=== PATIENT | female | born 1950 | race Caucasian/White ===

== ENCOUNTER 2017-01-04 19:10 | Inpatient (IN) ==
--- NOTE | 2017-01-04 20:39 | Emergency Department Note ---
Arrival - Arrival Chief Complaint: Fall Stated Complaint: fall ED Nursing Triage Note: TO ER ROOM 14 PER [facility] WITH C/O SP FALL. EMS REPORTS PATIENT BECAME DIZZY AND GOT UP TO CHECK HER BLOOD SUGAR (33 PER PATIENTS GLUCOMETER). PATIENT FELL DURING THAT TIME AND IS UNSURE IF SHE HIT HER HEAD OR HAD ANY LOC. PATIENT REPORTS SHE IS UNABLE TO RECALL THE EVENT OR ANYTHING AFTER CHECKING HER BLOOD SUGAR. EMS REPORTS ON ARRIVAL PATIENTS CBG WAS 505. PATIENT IS AAOX4 ON ARRIVAL AND IN FULL SPINAL PACKAGING AND C-COLLAR IN PLACE DUE TO FALL. PATIENT RECIEVED 1 LITER OF NORMAL SALINE IN ROUTE.CBG ON ARRIVAL TO ED IS 417. COMPLAINTS OF LOWER BACK PAIN HOWEVER PATIENT ALSO REPORTS BACK SURGERY "NOT LONG AGO". Mode of Arrival: Stretcher Time Seen by Provider: 01/04/17 19:43 - History of Present Illness HPI Narrative: This is a 66-year-old white female with a history of type 2 diabetes with an insulin pump, hypertension, hyperlipidemia, and depression who presented to the emergency department with a blood sugar of 33 as documented by her home glucometer similar to an admission on October 22, 2015 where she also had a seizure and was started on Trileptal. The patient has stopped the Trileptal over the past several months. The patient says that the problem began when she checked her blood sugar and found it to be 37. Thereafter she does not remember what happened but woke up on the floor complaining of right rib pain and head pain. When EMS arrived they found that her blood sugar was over 500. The placed her in a c-collar and on a backboard and brought her to the emergency department. Allergies/Adverse Reactions: Allergies Allergy/AdvReac Type Severity Reaction Status Date / Time cefuroxime [From Ceftin] Allergy Intermediate RASH Verified 06/25/16 06:33 Penicillins Allergy Intermediate RASH Verified 06/25/16 06:33 sulfamethoxazole Allergy Intermediate RASH Verified 06/25/16 06:33 [From Septra] trimethoprim [From Septra] Allergy Intermediate RASH Verified 06/25/16 06:33 Home Medications: Home Medications Medication Instructions Recorded Confirmed Type Amlodipine Besylate 10 mg PO DAILY 10/18/15 06/25/16 History Atorvastatin [Lipitor] 40 mg PO DAILY 10/18/15 06/25/16 History Cyanocobalamin (Vitamin B-12) 1,000 mcg PO DAILY 10/18/15 06/25/16 History [Vitamin B-12] Gabapentin 300 mg PO DAILY 10/18/15 06/25/16 History Sertraline HCl 100 mg PO DAILY 10/18/15 06/25/16 History Cetirizine Tab [ZyrTEC Tab] 10 mg PO DIRECTED PRN 03/04/16 06/25/16 History Fluticasone 50 Mcg Nasal [place] 1 sprays BOTH NARES DAILY 03/04/16 06/25/16 History [Flonase Nasal [place]] Insulin Aspart [NovoLOG] 0.45 units SUBCUT DIRECTED 03/09/16 06/25/16 History Tamsulosin [Flomax] 0.4 mg PO BEDTIME 03/09/16 06/25/16 History Nitrofurantoin Macro/[place] 100 mg PO BID 06/25/16 06/25/16 History [Macrobid] Review of System - Review of System Constitutional: Absent: fever, night sweats, weakness Eyes: Absent: redness, vision change Head/Ears/Nose/Throat: Absent: epistaxis, nasal drainage Respiratory: Absent: respiratory distress, wheezing Cardiovascular: Absent: dyspnea on exertion, orthopnea, edema Gastrointestinal: Absent: diarrhea, constipation Genitourinary female: Absent: frequency, hematuria Musculoskeletal: Absent: joint swelling, lower back pain, leg pain, neck pain Skin: Absent: change in color, change in hair/nails, pruritus Psychiatric: Absent: anxiety, suicidal thoughts Endocrine: Absent: heat intolerance, polydipsia, polyuria Hematological/Lymphatic: Absent: easy bruising, lymphadenopathy Allergic/Immunologic: Absent: urticaria, itchy eyes Medical,Surgical,& Family Hx - Medical History Cardio: History of: Cardiac Dysrhythmia (HEART MURMUR), Hypertension, Cardiovascular Problems (HEART MUMASAF CANO) Psychological: History of: Depression Neurology: History of: Seizures (10 18 15 DUE TO LOW BS) HEENT: History of: Eye Problem (RETINOPATHY, READING GLASSES) Endocrine: History of: Diabetes Mellitus (IDDM) (has insulin pump, CONTINOUS RATE IN .45 UNITS AND BOLUS AT MEALS.) Rheumatology: History of;: Rheumatoid Arthritis Respiratory: History of: Respiratory Problems (FLU VAC- YES; PNEU VAC- YES) Genitourinary: History of: Kidney Stones Musculoskeletal: History of: Musculoskeletal Problems (OSTEOARTHRITIS) Hematology: History of: Anemia - Surgical History Thoracic Surgeries: Surgical HX of;: Lithotripsy (SEVERAL) HEENT Surgeries: Surgical HX of: Eye Surgery (CATARACTS) Abdominal Surgeries: Surgical HX of: Colonoscopy Reproductive Surgeries: Surgical HX of;: Section, Genitourinary Surgery , Gynecologic Surgery, Hysterectomy Orthopedic Surgeries: Surgical HX of;: Orthopedic Surgery (JUAN J L LEG AND 4 SCREWS.) - Family History Family History: Reports;: Family Cancer - Social History Smoking Status: Never smoker Frequency of Alcohol Use: None Type of Drug Use: None Exam Vital Signs: Vital Signs Temperature 97.7 F 01/04/17 19:10 Pulse Rate 91 H 01/04/17 19:10 Respiratory Rate 18 01/04/17 19:10 Blood Pressure 173/74 01/04/17 19:10 O2 Sat by Pulse Oximetry 96 01/04/17 19:10 - General Exam limited due to: ALOC - Eye Eye exam: Present: PERRL, EOMI - ENT ENT exam: Present: normal exam - Neck Neck exam: Present: normal inspection - Chest Chest inspection: Present: normal inspection - Respiratory Respiratory exam: Present: normal lung sounds bilaterally - Cardiovascular Cardiovascular exam: Present: regular rate - Abdominal Exam Abdominal exam: Present: soft, normal bowel sounds - Extremities Exam Extremities exam: Present: normal inspection, full ROM - Back Exam Back exam: Present: normal inspection, tenderness - Neurological Exam Neurological exam: Present: alert, oriented X3, CN II-XII intact - Psychiatric Psychiatric exam: Present: normal affect, normal mood - Skin Skin exam: Present: warm, dry Course Course Narrative: Because the patient lives alone and because she has passed out for reasons which are not clear since her blood sugar was elevated and because the patient feels generally ill case was discussed with her attending her agreed to put her in the hospital for a diagnosis of syncope for further evaluation and treatment as necessary. Results - Labs CBC & BMP: 01/04/17 20:43 01/04/17 20:43 Disposition Clinical Impression: Syncope and collapse Disposition: Still a Patient Additional Instructions: Because the patient lives alone and because she has passed out for reasons which are not clear since her blood sugar was elevated and because the patient feels generally ill case was discussed with her attending her agreed to put her in the hospital for a diagnosis of syncope for further evaluation and treatment as necessary.
[2017-01-04 21:00] LABS: Basophils % 0.4 % (0.0-0.8); Eosinophils % 0.3 % (0.00-10.9); Hematocrit 38.4 VOL% (35.7-47.0); Hemoglobin 13.3 GM/DL (12.0-16.0); Immature Granulocytes % 0.4 %; Immature Granulocytes Absolute 0.04 #; Lymphocytes # 1.1 10*3/uL (1.4-4.0); Lymphocytes % 11.4 % (21.3-54.2); Mean Corpuscular HGB Conc 34.6 GM/DL (32-36); Mean Corpuscular Hemoglobin 31 PG (27-34); Mean Corpuscular Volume 89.9 FL (87-102); Monocytes # 0.3 10*3/uL (0.11-0.8); Monocytes % 2.7 % (1.7-12.7); Neutrophils # 7.9 10*3/uL (1.4-7.4); Neutrophils % 84.8 % (38.7-73.9); Platelet Count 213 T/CUMM (130-400); Red Blood Count 4.27 MC/CUMM (3.8-5.5); White Blood Count 9.4 T/CUMM (4-12)
[2017-01-04 21:12] LABS: Alanine Aminotransferase 33 U/L (13-56); Albumin 3.5 G/DL (3.4-5.0); Alkaline Phosphatase 114 U/L (45-117); Aspartate Amino Transferase 27 U/L (0-37); Bilirubin,Total < 0.39 MG/DL (0.2-1.0); Blood Urea Nitrogen 16 MG/DL (7-18); Calcium 8.4 MG/DL (8.5-10.1); Glucose 423 MG/DL (74-106); Osmolality,Calculated 299.3 MOS/KG (273-304); Potassium 4.4 MMOL/L (3.5-5.1); Sodium 141 MMOL/L (136-145); Total Protein 6.1 G/DL (6.4-8.3)
--- NOTE | 2017-01-04 21:45 | EKG Report ---
Stationary ECG Study [facility] ER Test Date: 01/04/2017 9:44:06 PM Pat Name: DONI SANTIAGO Department: Room: Gender: F Butcher Or Smallgoods Maker: : 1950 Requested by: Jean Paul Lange Order Number: [id number] Reading MD: YUAN MILLIGAN Intervals [place] Rate: 87 P: 68 UT: 165 QRS: 73 QRSD: 90 T: 66 QT: 374 QTc: 418 Interpretive Statements SINUS RHYTHM MINIMAL VOLTAGE CRITERIA FOR LVH, CONSIDER NORMAL VARIANT Electronically Signed On 01-05-17 16:17:07 CDT by YUAN MILLIGAN [email or web address]
[2017-01-04] MEDS ORDERED: INSULIN REGULAR 100 UNIT/ML IV STA (22:49)
[2017-01-04] MEDS ORDERED: INSULIN REGULAR 100 UNIT/ML ONE (22:59)
[2017-01-04] MEDS ORDERED: DEXTROSE 50% 25 GM/50 ML SYRINGE IV PRN (23:03)
[2017-01-04] MEDS ORDERED: ONDANSETRON 4 MG/2 ML VIAL IV PRN (23:03)
[2017-01-04] MEDS ORDERED: GLUCAGON 1 MG VIAL IM PRN (23:03)
[2017-01-05] MEDS: ACETAMINOPHEN 325 MG TABLET PO PRN ×2 (02:39→09:36)
[2017-01-05] MEDS: INSULIN REGULAR 100 UNIT/ML SUBCUT SCH ×2 (03:03→07:09)
--- NOTE | 2017-01-05 06:13 | CT Report ---
Exam: CT scan of brain without contrast Date: 01/04/2017 Indication: Head injury status post fall Comparison: 10/18/2015 Patient's classification: Emergency department Technical: Images were obtained from the skull base to the vertex without the use of intravenous contrast. Dose reduction was performed with decreasing kv and mA and automated exposure Total DLP: 1081.1 mGy*cm Findings: The study was initially reviewed by [facility]. The brainstem, cerebellum and cerebral hemispheres are intact. The paranasal sinuses are unremarkable. Mastoids are intact. The ventricles are located in normal position without midline shift or mass effect. The globes and sella are intact. Vascular calcifications of the vertebral and internal carotid arteries minimally present. The calvarium is unremarkable. Impression: 1. No acute hemorrhage infarction or mass effect. PROCEDURE INTERPRETED AT [facility] DEPARTMENT OF RADIOLOGY Final Report Signed by: Dr. Wesley Kilgore
--- NOTE | 2017-01-05 06:16 | CT Report ---
Exam:CT cervical spine wo con Date:01/04/2017 8:46 PM Indication: Neck pain secondary to fall Comparison: None Total DLP: 807.3 mGy*cm Technical: Sagittal axial and coronal imaging was available for review with out the use of intravenous contrast. Dose reduction was performed with decreasing kv and mA and automated exposure Findings: The study was initially reviewed by [facility]. 7 cervical vertebral bodies are demonstrated. The vertebral body heights, lamina, pedicles, and posterior elements are intact. Examination reveals disc space narrowing at C4-5 with attempted bridging syndesmophyte at C4-5 and to a lesser degree C3-4 with attempted bridging syndesmophyte at C5-6. The arch at C1 and C2 and odontoid process are intact with some bony sclerosis present. The neural foramina canals are demonstrated with some uncovertebral osteophytic spurring at C3-4 C4-5 C5-6 and C6-7. No soft tissue abnormalities are demonstrated. Impression 1. No fracture or dislocation. 2. Mild degenerative changes and intervertebral disc space narrowing with degenerative spondylosis PROCEDURE INTERPRETED AT [facility] DEPARTMENT OF RADIOLOGY Final Report Signed by: Dr. Wesley Kilgore
--- NOTE | 2017-01-05 06:33 | CT Report ---
Exam:CT chest w con Date:01/04/2017 8:46 PM Indication: Right rib pain secondary to fall Technical: Images were obtained from the thoracic inlet through the lung bases with 80 cc of contrast. Axial sagittal and coronal imaging was available for review.Dose reduction was performed with decreasing kv and mA and automated exposure Total DLP: 807.3 mGy*cm Findings: The study was initially reviewed by [facility] The thyroid gland, trachea and esophagus are unremarkable. The anterior middle and posterior mediastinum are intact. The heart and pulmonary artery are unremarkable. ASVD is present in the aorta. The lungs are clear without infiltrates or effusions. Minimal dependent atelectatic change present. The bony structures are demonstrated with compression deformity T12 with previous vertebral plasty mild weightbearing deformity at T10 and T7 suspected. The cortical margins and ribs are otherwise intact. Remaining bony thorax appears intact. Impression: 1. Mild compression deformity at T7 and T10 with previous vertebral plasty at T12 2. Minimal dependent atelectatic change present. Exam: CT abdomen pelvis w con Date: 01/04/2017 8:46 PM Comparison: 11/09/2016 Indication: Pain secondary to fall rib and back pain Total DLP: As above mGy*cm Technical: No oral contrast was administered. Images were obtained from the lung bases to the iliac crest continuation through the pelvis with 100 cc of Omnipaque 350 with axial sagittal coronal imaging available for review. Dose reduction was performed with decreasing kv and mA and automated exposure Findings: Liver and Spleen: Unremarkable Gallbladder and Pancreas: Unremarkable Adrenals: Unremarkable Kidneys: Both kidneys are equally perfused and demonstrate no evidence for obstructive uropathy. Tiny nonobstructing stone in the left kidney measuring approximately 3 mm Stomach: Incompletely distended with air fluid and debris Retroperitoneum: No enlarged lymph nodes. Aorta and IVC: No obvious aneurysm atherosclerotic plaque is present. IVC is patent. Bowel and Mesentery: There is no evidence for bowel obstruction. Small appendicolith is present. No evidence of acute appendicitis noted. Minimal diverticulosis without diverticulitis present Pelvis: Bladder: Partially distended with contrast on delayed images Fluid: No free fluid identified. Lymph nodes: No enlarged lymph nodes. Pelvic organs: The uterus is surgically absent 1 prior hysterectomy. No obvious adnexal masses Osseous structures: Mild weightbearing deformity at L5. The bony pelvis is otherwise intact. Impression: 1. Minimal weightbearing deformity at L5. 2. Previous hysterectomy 3. Minimal diverticulosis 4. Small appendicolith present without appendicitis PROCEDURE INTERPRETED AT [facility] DEPARTMENT OF RADIOLOGY Final Report Signed by: Dr. Wesley Kilgore
[2017-01-05] MEDS: DOCUSATE SODIUM 100 MG CAPSULE PO SCH ×2 (09:33→22:51)
[2017-01-05] MEDS: PANTOPRAZOLE 40 MG TABLET PO SCH (09:35)
--- NOTE | 2017-01-05 09:55 | Internal Med History&Physical ---
Assessment and Plan (1) Syncopal episodes Status: Acute Assessment and plan: 66-year-old female admitted to acute care * Syncopal episodes. Probably secondary to hypoglycemia. Other differential diagnosis could be hypoglycemic seizure. She had stopped her Trileptal. Will consult Dr. Nettles to see the patient. She probably needs to start back on her Trileptal. * Hypoglycemic episodes. Patient is on insulin pump. Will consult diabetic education to evaluate. 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 She will benefit from a glucose monitoring device or the newer insulin pump * Hypertension. Blood pressure is stable * Depression. Continue current treatment * Hyperlipidemia. Continue atorvastatin * Chronic neck pain. Patient is getting injections and treatment per Dr. Saldaña. We will start her on PT and OT. * Chest wall pain. There is no point tenderness. She had CT chest done. Will do rib films to make sure * Discussed with patient and her sister. Current Visit: Yes (2) Multiple episodes of hypoglycemia Status: Acute Current Visit: Yes (3) Depression Status: Acute Current Visit: No (4) Insulin dependent diabetes mellitus Status: Acute Current Visit: No (5) Seizures Status: Acute Current Visit: No History of Present Illness Chief complaint: Syncopal episode History of present illness: Ms. Martinez is a 66 year old female with history of type 2 insulin-dependent diabetes, hypertension, hyperlipidemia, depression, previous seizures who had stopped taking her medication several months ago. He was brought to the emergency room after she became dizzy and checked her blood sugar. It was 33 according to the patient. She had a fall at that time and lost consciousness. She was unsure if she had hit her head. She does not recall what happened after that but she did drink some orange juice. Her blood sugar was over 500 minutes was checked by EMS. She was brought to the emergency room. Patient underwent evaluation including CT scan of head chest abdomen and cervical spine. She is complaining of pain in her right chest wall. She denies any nausea or vomiting. She denies any fever or chills. Patient lives alone at home. She denies any history of smoking or alcohol use. She was started on Trileptal last year but stopped it several months ago. Home Medications Medication Instructions Recorded Confirmed Type Amlodipine Besylate 10 mg PO DAILY 10/18/15 06/25/16 History Atorvastatin [Lipitor] 40 mg PO DAILY 10/18/15 06/25/16 History Cyanocobalamin (Vitamin B-12) 1,000 mcg PO DAILY 10/18/15 06/25/16 History [Vitamin B-12] Gabapentin 300 mg PO DAILY 10/18/15 06/25/16 History Sertraline HCl 100 mg PO DAILY 10/18/15 06/25/16 History Cetirizine Tab [ZyrTEC Tab] 10 mg PO DIRECTED PRN 03/04/16 06/25/16 History Fluticasone 50 Mcg Nasal [place] 1 sprays BOTH NARES DAILY 03/04/16 06/25/16 History [Flonase Nasal [place]] Insulin Aspart [NovoLOG] 0.45 units SUBCUT DIRECTED 03/09/16 06/25/16 History Tamsulosin [Flomax] 0.4 mg PO BEDTIME 03/09/16 06/25/16 History Nitrofurantoin Macro/[place] 100 mg PO BID 06/25/16 06/25/16 History [Macrobid] Allergies Allergy/AdvReac Type Severity Reaction Status Date / Time cefuroxime [From Ceftin] Allergy Intermediate RASH Verified 06/25/16 06:33 Penicillins Allergy Intermediate RASH Verified 06/25/16 06:33 sulfamethoxazole Allergy Intermediate RASH Verified 06/25/16 06:33 [From Septra] trimethoprim [From Septra] Allergy Intermediate RASH Verified 06/25/16 06:33 Medical,Surgical,& Family Hx - Medical History Cardio: History of: Cardiac Dysrhythmia (HEART MURMUR), Hypertension, Cardiovascular Problems (HEART MUMUR DR NAIDA CANO) Psychological: History of: Depression Neurology: History of: Seizures (10 18 15 DUE TO LOW BS) HEENT: History of: Eye Problem (RETINOPATHY, READING GLASSES) Endocrine: History of: Diabetes Mellitus (IDDM) (has insulin pump, CONTINOUS RATE IN .45 UNITS AND BOLUS AT MEALS.) Rheumatology: History of;: Rheumatoid Arthritis Respiratory: History of: Respiratory Problems (FLU VAC- YES; PNEU VAC- YES) Genitourinary: History of: Kidney Stones Musculoskeletal: History of: Musculoskeletal Problems (OSTEOARTHRITIS) Hematology: History of: Anemia - Surgical History Thoracic Surgeries: Surgical HX of;: Lithotripsy (SEVERAL) HEENT Surgeries: Surgical HX of: Eye Surgery (CATARACTS) Abdominal Surgeries: Surgical HX of: Colonoscopy Reproductive Surgeries: Surgical HX of;: Section, Genitourinary Surgery , Gynecologic Surgery, Hysterectomy Orthopedic Surgeries: Surgical HX of;: Orthopedic Surgery (JUAN J L LEG AND 4 SCREWS.) - Family History Family History: Reports;: Family Cancer - Social History Smoking Status: Never smoker Frequency of Alcohol Use: None Type of Drug Use: None Marital Status: Single Lives With:: Alone Functional capacity: independent ambulation 12 point system: reviewed and no additional remarkable complaints except as stated (As mentioned in HPI) Exam - Constitutional Vitals: Period Temp Pulse Resp BP Sys/Small Pulse Ox Last 24 Hr 97.4 F-98.8 F 71-91 18-20 134-173/60-74 96-97 Exam: Examination: GENERAL: NAD. HEENT: PERRLA. EOMI. Mucous membranes are moist. NECK: Neck is supple. No JVD. No carotid bruit. No thyromegaly. CVS: Regular rate and rhythm. S1 and S2 are normal. RESPIRATORY: Lungs are clear. No rales or rhonchi. ABDOMEN: Soft and nontender. Bowel sounds are present. No hepatosplenomegaly. EXT: No edema. Peripheral pulses are present. PROFESSOR OF ART HISTORY: Patient is awake, alert and oriented to time place and person. Cranial nerves II through XII are grossly intact. Motor strength is 4 over 5 both upper and lower extremities. Sensory is intact. Deep tendon reflexes are present. SKIN: Warm and dry. MSK: No obvious deformity. Results - Labs CBC & BMP: 01/04/17 20:43 01/04/17 20:43 Lab Results: I have reviewed the past 24 hour labs Quality Measures - VTE Contraindication to Pharmacological VTE Prophylaxis: High Risk of Bleeding
[2017-01-05] MEDS ORDERED: GLUCAGON 1 MG VIAL IM PRN (10:02)
--- NOTE | 2017-01-05 11:25 | XRay Report ---
2 view chest January 05, 2017 at 1038 hours Indication: Pain Comparison: October 18, 2015 Findings: Cardiomediastinal contours are normal. Lungs are clear bilaterally. No acute osseous abnormalities. Osseous structures are demineralized. Remote T12 compression deformity post augmentation, uncomplicated. Visualized upper abdomen demonstrates no acute pathology. Impression: No acute cardiopulmonary findings PROCEDURE INTERPRETED AT [facility] DEPARTMENT OF RADIOLOGY Final Report Signed by: Jero Hernandez
[2017-01-05] MEDS: INSULIN LISPRO 100 UNIT/ML SUBCUT SCH ×3 (12:18→22:48)
[2017-01-05] MEDS ORDERED: INSULIN LISPRO 100 UNIT/ML SUBCUT SCH (12:30)
--- NOTE | 2017-01-05 17:49 | Neurology Consult Note ---
History of Present Illness History of present illness: Ms. Martinez is a 66 year old right-handed white lady with history of type 2 insulin-dependent diabetes, hypertension, hyperlipidemia, depression, previous seizures who had stopped taking her medication several months ago for unclear reason. She was diagnosed as possible seizures in 2016. She was brought to the emergency room after she became dizzy and checked her blood sugar. It was 33 according to the patient. She had a fall at that time and lost consciousness. She was unsure if she had hit her head. She does not recall what happened after that but she did drink some orange juice. Her blood sugar was over 500 minutes was checked by EMS. She was brought to the emergency room. Patient underwent evaluation including CT scan of head chest abdomen and cervical spine. She is complaining of pain in her right chest wall. She denies any nausea or vomiting. She denies any fever or chills. Patient lives alone at home. She denies any history of smoking or alcohol use. CT of the head is unremarkable. CT of the cervical spine is negative. She is quite depressed and crying during the interview. Home Medications Medication Instructions Recorded Confirmed Type Amlodipine Besylate 10 mg PO DAILY 10/18/15 01/05/17 History Atorvastatin [Lipitor] 40 mg PO DAILY 10/18/15 01/05/17 History Cyanocobalamin (Vitamin B-12) 1,000 mcg PO DAILY 10/18/15 01/05/17 History [Vitamin B-12] Gabapentin 300 mg PO DAILY 10/18/15 01/05/17 History Sertraline HCl 100 mg PO DAILY 10/18/15 01/05/17 History Cetirizine Tab [ZyrTEC Tab] 10 mg PO DAILY PRN 03/04/16 01/05/17 History Fluticasone 50 Mcg Nasal [place] 1 sprays BOTH NARES DAILY 03/04/16 01/05/17 History [Flonase Nasal [place]] Insulin Aspart [NovoLOG] 0 units SUBCUT .PER PUMP 03/09/16 01/05/17 History Tamsulosin [Flomax] 0.4 mg PO BEDTIME 03/09/16 01/05/17 History Allergies Allergy/AdvReac Type Severity Reaction Status Date / Time cefuroxime [From Ceftin] Allergy Intermediate RASH Verified 06/25/16 06:33 Penicillins Allergy Intermediate RASH Verified 06/25/16 06:33 sulfamethoxazole Allergy Intermediate RASH Verified 06/25/16 06:33 [From ] trimethoprim [From ] Allergy Intermediate RASH Verified 06/25/16 06:33 12 point system: reviewed and no additional remarkable complaints except as stated Medical,Surgical,& Family Hx - Medical History Cardio: History of: Cardiac Dysrhythmia (HEART MURMUR), Hypertension, Cardiovascular Problems (HEART MUMUR DR NGUYENT DR CANO) Psychological: History of: Depression Neurology: History of: Seizures (10 18 15 DUE TO LOW BS) HEENT: History of: Eye Problem (RETINOPATHY, READING GLASSES) Endocrine: History of: Diabetes Mellitus (IDDM) (has insulin pump, CONTINOUS RATE IN .45 UNITS AND BOLUS AT MEALS.) Rheumatology: History of;: Rheumatoid Arthritis Respiratory: History of: Respiratory Problems (FLU VAC- YES; PNEU VAC- YES) Genitourinary: History of: Kidney Stones Musculoskeletal: History of: Musculoskeletal Problems (OSTEOARTHRITIS) Hematology: History of: Anemia - Surgical History Thoracic Surgeries: Surgical HX of;: Lithotripsy (SEVERAL) HEENT Surgeries: Surgical HX of: Eye Surgery (CATARACTS) Abdominal Surgeries: Surgical HX of: Colonoscopy Reproductive Surgeries: Surgical HX of;: Section, Genitourinary Surgery , Gynecologic Surgery, Hysterectomy Orthopedic Surgeries: Surgical HX of;: Orthopedic Surgery (JUAN J L LEG AND 4 SCREWS.) - Family History Family History: Reports;: Family Cancer - Social History Smoking Status: Never smoker Frequency of Alcohol Use: None Type of Drug Use: None Exam - Constitutional Vitals: Period Temp Pulse Resp BP Sys/Small Pulse Ox Last 24 Hr 97.4 F-98.8 F 69-91 18-20 132-173/60-74 96-97 Exam: GENERAL: Patient is in no acute distress. NECK: Neck is supple. There is no JVD. No carotid bruits present. No thyroid masses. CVS: First and second heart sounds are normal. There is no S3 present. Regular rate and rhythm. RESPIRATORY: Lungs are clear to auscultation without any rales or rhonchi. ABDOMEN: Soft and non-tender. Bowel sounds are present. There is no hepatosplenomegaly. EXT: There is no palpable edema. Peripheral pulses are present. Skin: No rashes Central Nervous system: General: Alert, awake and Oriented x 3 Speech: Fluent Comprehension: Intact and normal Facial expressions: Normal Cranial Nerves: CN1/Olfactory: Normal CN II/ Optic: Normal, Visual Galindo unreliable CN III, and : DEANGELO & EOMI CN V: Normal & intact CN VII: face is symmetric CNVIII: Normal CN XI/X/XI/XII: Intact and Normal Motor: Bulk and Tone is normal. Strength in the right 5/5 Strength in the left 5/5 Sensory: Grossly intact for all the modalities of PP, LT and temp sense Reflexes: 1+ and symmetrical Cerebellar function: Normal finger to nose and heel to thompson testing. Toes: Equivocal Gait: Not tested at this time Results - Labs CBC & BMP: 01/04/17 20:43 01/04/17 20:43 Assessment and Plan (1) Multiple episodes of hypoglycemia Status: Acute Assessment and plan: Defer treatment to Current Visit: Yes (2) Seizures Status: Acute Assessment and plan: We will try Vimpat 50 mg. P.o. daily this time and gradually titrate it up Discussed at length with the patient regarding disease process treatment options and prognosis Thank you for the consult Current Visit: No
[2017-01-05] MEDS: TAMSULOSIN 0.4 MG CAPSULE PO SCH (22:50)
[2017-01-06 04:19] LABS: Basophils # 0.1 10*3/uL (0.0-0.2); Basophils % 0.7 % (0.0-0.8); Eosinophils # 0.4 10*3/uL (0.0-0.87); Eosinophils % 5.8 % (0.00-10.9); Hematocrit 37.5 VOL% (35.7-47.0); Immature Granulocytes % 0.1 %; Immature Granulocytes Absolute 0.01 #; Lymphocytes # 3.1 10*3/uL (1.4-4.0); Lymphocytes % 43.9 % (21.3-54.2); Mean Corpuscular HGB Conc 34.7 GM/DL (32-36); Mean Corpuscular Hemoglobin 31 PG (27-34); Mean Corpuscular Volume 89.7 FL (87-102); Monocytes # 0.5 10*3/uL (0.11-0.8); Monocytes % 6.9 % (1.7-12.7); Neutrophils % 42.6 % (38.7-73.9); Platelet Count 224 T/CUMM (130-400); Red Blood Count 4.18 MC/CUMM (3.8-5.5); Red Cell Distribution Width 13.2 % (9.3-17.3); White Blood Count 6.9 T/CUMM (4-12)
[2017-01-06 04:49] LABS: Calcium 9.3 MG/DL (8.5-10.1); Osmolality,Calculated 285.7 MOS/KG (273-304); Potassium 3.7 MMOL/L (3.5-5.1)
--- NOTE | 2017-01-06 09:05 | Internal Med Progress Note ---
Assessment and Plan (1) Syncopal episodes Status: Acute Assessment and plan: 66-year-old female admitted to acute care * Syncopal episodes. Probably seizures. Patient has been started on Vimpat * Hypoglycemic episodes. Will DC her sliding scale and she will use sliding scale through the pump * Hypertension. Blood pressure is stable * Depression. Continue current treatment * Hyperlipidemia. Continue atorvastatin * Chronic neck pain. Started on PT and OT * Chest wall pain. Chest x-ray was okay * Discussed with patient and her sister. Current Visit: Yes (2) Multiple episodes of hypoglycemia Status: Acute Current Visit: Yes (3) Depression Status: Acute Current Visit: No (4) Insulin dependent diabetes mellitus Status: Acute Current Visit: No (5) Seizures Status: Acute Current Visit: No Internal Medicine - PN: Subj Interval history: She is feeling better this morning. She did have a low blood sugar earlier. She is still sore in her chest wall. She denies any chest pain or shortness of breath. She denies any nausea or vomiting. Exam (Progress Note) - Constitutional Vitals: Period Temp Pulse Resp BP Sys/Small Pulse Ox Last 24 Hr 96.9 F-98.2 F 69-78 18-20 117-137/56-84 98 Exam: Examination: GENERAL: NAD. HEENT: PERRLA. EOMI. NECK: Neck is supple. CVS: Regular rate and rhythm. S1 and S2 are normal. RESPIRATORY: Lungs are clear. ABDOMEN: Soft and nontender. EXT: No edema. Peripheral pulses are present. STUDIO TECHNICIAN: Patient is awake, alert and oriented to time place and person. Cranial nerves II through XII are grossly intact. Motor strength is 4 over 5 both upper and lower extremities SKIN: Warm and dry. MSK: No obvious deformity. Results - Labs CBC & BMP: 01/06/17 03:54 01/06/17 03:54 Lab Results: I have reviewed the past 24 hour labs Quality Measures - VTE Contraindication to Pharmacological VTE Prophylaxis: High Risk of Bleeding
[2017-01-06] MEDS: CYANOCOBALAMIN 500 MCG TABLET PO SCH (11:41)
[2017-01-06] MEDS: ACETAMINOPHEN 325 MG TABLET PO PRN (11:42)
[2017-01-06] MEDS: GABAPENTIN 300 MG CAPSULE PO SCH (11:42)
[2017-01-06] MEDS: amLODIPine 10 MG TABLET PO SCH (11:42)
[2017-01-06] MEDS: DOCUSATE SODIUM 100 MG CAPSULE PO SCH ×2 (11:44→20:44)
[2017-01-06] MEDS: CETIRIZINE 10 MG TABLET PO PRN (11:44)
[2017-01-06] MEDS: PANTOPRAZOLE 40 MG TABLET PO SCH (11:44)
[2017-01-06] MEDS: SERTRALINE 100 MG TABLET PO SCH (11:45)
[2017-01-06] MEDS: LACOSAMIDE 50 MG TABLET PO SCH (11:45)
[2017-01-06] MEDS: ATORVASTATIN 40 MG TABLET PO SCH (11:45)
[2017-01-06] MEDS: FLUTICASONE 50 MCG NASAL SPRAY 16 GM BOTTLE BOTH NARES SCH (11:45)
--- NOTE | 2017-01-06 14:56 | Physician Query Form ---
CLICK EDIT DOCUMENT TO SELECT QUERY ANSWER --> OK --> SIGN Eolise Lobo RN Clinical Telehealth Director W) [phone] (f) [phone] [email or web address]: Make your selection(s) from the choices in EACH section by typing an "x" and enter comments in the comment section. Please use your independent medical judgment in providing your response. This request does not imply that any particular answer is desired or expected. 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 She has always been thin but has recently lost more weight. Based on the above, which following choice most accurately represents the patient's nutritional status? ( ) Malnutrition ( ) mild ( ) moderate ( ) severe ( ) Protein calorie malnutrition ( ) mild ( ) moderate ( ) severe ( ) Emaciation due to malnutrition ( ) Nutritional marasmus ( ) Cachexia (x ) Underweight ( ) No nutritional deficiency ( ) Other, please specify: ( ) Clinically unable to determine Mild Malnutrition (BMI < 18.5, % Normal Body Weight 85-95%) Moderate Malnutrition (BMI < 17, % Normal Body Weight 75-85%) Severe Malnutrition (BMI < 16, % Normal Body Weight < 75%) Source: Renate COMMENTS: PLEASE ALSO DOCUMENT RESPONSE IN PROGRESS NOTES AND/OR DISCHARGE SUMMARY Use of terms such as suspected, likely, or probable (associated with a specific diagnosis that is being evaluated, monitored, or treated as if it exists) are acceptable and can be restated in the discharge summary if not ruled out. MTDD
--- NOTE | 2017-01-06 15:31 | Neurology Progress Note ---
Neurology - PN : Subjective Interval history: Patient is up and about. Walking good. No new problems reported. No more syncopal spells reported. She ate well today Exam (Progress Note) - Constitutional Vitals: Period Temp Pulse Resp BP Sys/Small Pulse Ox Last 24 Hr 96.9 F-98.2 F 69-85 18-20 117-137/56-84 98-98 Exam: GENERAL: Patient is in no acute distress. NECK: Neck is supple. There is no JVD. No carotid bruits present. No thyroid masses. CVS: First and second heart sounds are normal. There is no S3 present. Regular rate and rhythm. RESPIRATORY: Lungs are clear to auscultation without any rales or rhonchi. ABDOMEN: Soft and non-tender. Bowel sounds are present. There is no hepatosplenomegaly. EXT: There is no palpable edema. Peripheral pulses are present. Skin: No rashes Central Nervous system: General: Alert, awake and Oriented x 3 Speech: Fluent Comprehension: Intact and normal Facial expressions: Normal Cranial Nerves: CN1/Olfactory: Normal CN II/ Optic: Normal, Visual Galindo unreliable CN III, and : DEANGELO & EOMI CN V: Normal & intact CN VII: face is symmetric CNVIII: Normal CN XI/X/XI/XII: Intact and Normal Motor: Bulk and Tone is normal. Strength in the right 5/5 Strength in the left 5/5 Sensory: Grossly intact for all the modalities of PP, LT and temp sense Reflexes: 1+ and symmetrical Cerebellar function: Normal finger to nose and heel to thompson testing. Toes: Equivocal Gait: Able to get up and walk Results - Labs CBC & BMP: 01/06/17 03:54 01/06/17 03:54 Assessment and Plan (1) Multiple episodes of hypoglycemia Status: Acute Assessment and plan: Defer treatment to Current Visit: Yes (2) Seizures Status: Acute Assessment and plan: Continue Vimpat 50 mg daily for now Discussed at length with her sister that she may not be safe enough to live by herself anymore. They voiced understanding everything. Follow-up in 1 month Sign off please call as needed Current Visit: No Quality Measures - VTE Contraindication to Pharmacological VTE Prophylaxis: High Risk of Bleeding Specialty Discharge - Follow Up or Referrals Follow up with: Jairo Nettles MD [Physician] - 1 Month
[2017-01-06] MEDS: TAMSULOSIN 0.4 MG CAPSULE PO SCH (20:44)
[2017-01-07 06:17] LABS: Osmolality,Calculated 290.8 MOS/KG (273-304); Potassium 4.3 MMOL/L (3.5-5.1)
--- NOTE | 2017-01-07 09:40 | Discharge Summary ---
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 Her blood sugars were initially low. Patient possibly had a seizure. She had stopped her medication several months ago. Patient was evaluated by neurology who have started her on Vimpat. She was evaluated by therapy who recommended therapy and swing bed because of multiple issues. I discussed that with patient and her daughter. She was also seen in consultation by diabetic education's who have made adjustments to her insulin pump settings. She will be discharged to swing bed unit today. I will see her in office a week after discharge from swing bed Diagnosis - Discharge Diagnosis (1) Syncopal episodes Status: Acute (2) Multiple episodes of hypoglycemia Status: Acute (3) Depression Status: Acute (4) Insulin dependent diabetes mellitus Status: Acute (5) Seizures Status: Acute Specialty Discharge - Follow Up or Referrals Follow up with: Jairo Nettles MD [Physician] - 1 Month Discharge Plan - Discharge Data Disposition: Disch/Xfer to Snf Condition at Discharge: Stable Discharge Diet: advance to your usual diet, diabetic diet Activity: as per physical therapy - Discharge Medications New Lacosamide Tab [Vimpat Tab] 50 mg PO DAILY tablet Continue Sertraline HCl 100 mg PO DAILY Gabapentin 300 mg PO DAILY Atorvastatin [Lipitor] 40 mg PO DAILY Amlodipine Besylate 10 mg PO DAILY Cyanocobalamin (Vitamin B-12) [Vitamin B-12] 1,000 mcg PO DAILY Fluticasone 50 Mcg Nasal [place] [Flonase Nasal [place]] 1 sprays BOTH NARES DAILY Cetirizine Tab [ZyrTEC Tab] 10 mg PO DAILY PRN PRN Reason: Allergy Symptoms Tamsulosin [Flomax] 0.4 mg PO BEDTIME Insulin Aspart [NovoLOG] 0 units SUBCUT .PER PUMP - Follow Up or Referral Follow Up: Jairo Nettles MD [Physician] - 1 Month - Forms/Instructions Exam - Constitutional Vitals: Period Temp Pulse Resp BP Sys/Small Pulse Ox Last 24 Hr 96.8 F-98.0 F 69-74 18-20 103-137/52-76 91-97 Exam: Examination: GENERAL: NAD. NECK: Neck is supple. CVS: Regular rate and rhythm. S1 and S2 are normal. RESPIRATORY: Lungs are clear. ABDOMEN: Soft and nontender. EXT: No edema. Peripheral pulses are present. EXCEPTIONAL STUDENT EDUCATION AIDE: Patient awake alert and oriented 3 SKIN: Warm and dry. MSK: No obvious deformity. Discharge Results Labs on day of discharge: Labs from last 24 hours 01/07/17 01/07/17 01/07/17 08:08 07:30 05:10 Sodium 144 Potassium 4.3 Chloride 107 Carbon Dioxide 34 H Anion Gap 7.3 BUN 17 Creatinine 0.70 GFR Calculation 84 BUN/Creatinine Ratio 24.00 H Glucose 153 H POC Glucose 144 H 154 H Calculated Osmolality 290.8 Calcium 9.0 01/06/17 01/06/17 01/06/17 20:06 16:47 14:59 Sodium Potassium Chloride Carbon Dioxide Anion Gap BUN Creatinine GFR Calculation BUN/Creatinine Ratio Glucose POC Glucose 229 H 290 H 361 H Calculated Osmolality Calcium 01/06/17 11:36 Sodium Potassium Chloride Carbon Dioxide Anion Gap BUN Creatinine GFR Calculation BUN/Creatinine Ratio Glucose POC Glucose 323 H Calculated Osmolality Calcium DS: Provider Date of admission: 01/04/17 23:03 Primary care physician: Carlin Garcia MD Attending physician on admission: Carlin Garcia MD Consults: 01/04/17 23:04 Consult to Case Mgmt/Social Srvs [CONS] Routine Reason for Case Mgmt/Social Srvs: Discharge Planning Consult Comment: [place] [facility] 01/05/17 09:52 Consult to Physician [CONS] Routine Comment: ?seizures, hx seizures Consulting Provider: Jairo Nettles 01/05/17 10:04 Consult to Diabetes Center, Educator [CONS] Routine Reason for Summer Analyst: Diabetes Education Consult Comment: pt has insulin pump and has continual low blood sugars Consult to Diabetes Center, Educator [CONS] Routine Reason for Summer Analyst: Restart Insulin Pump Consult Comment: Hypoglycemic episode. Evaluate her insulin pump Consult to Physician [CONS] Routine Comment: Seizures Consulting Provider: Jairo Nettles Person Notified: TOAN Date Notified: 01/05/17 Time Notified: 10:23 01/06/17 09:01 Consult to Occupational Therapy [CONS] Routine Reason for Occupational Therapy: Evaluate and Treat Consult Comment: Mini Mental Exam Consult to Physical Therapy [CONS] Routine Reason for Physical Therapy: Evaluate and Treat Discharging clinician: Carlin Garcia MD
[2017-01-07] MEDS: ATORVASTATIN 40 MG TABLET PO SCH (11:05)
[2017-01-07] MEDS: amLODIPine 10 MG TABLET PO SCH (11:05)
[2017-01-07] MEDS: CYANOCOBALAMIN 500 MCG TABLET PO SCH (11:05)
[2017-01-07] MEDS: DOCUSATE SODIUM 100 MG CAPSULE PO SCH (11:05)
[2017-01-07] MEDS: LACOSAMIDE 50 MG TABLET PO SCH (11:06)
[2017-01-07] MEDS: PANTOPRAZOLE 40 MG TABLET PO SCH (11:06)
[2017-01-07] MEDS: GABAPENTIN 300 MG CAPSULE PO SCH (11:06)
[2017-01-07] MEDS: CETIRIZINE 10 MG TABLET PO PRN (11:06)
[2017-01-07] MEDS: SERTRALINE 100 MG TABLET PO SCH (11:06)
[2017-01-07] MEDS: FLUTICASONE 50 MCG NASAL SPRAY 16 GM BOTTLE BOTH NARES SCH (11:08)
[2017-01-07 11:58] VITALS: BP 169/72
== END 2017-01-07 14:00 | disposition swing bed (61) | DRG 638 ==
LOC: EDUNIT# → N.ED 19:10 → N.EDINP 23:03 → N.2E 01-05 01:34
PROVIDERS: ADMIT Internal Medicine; ATTEND Internal Medicine

== ENCOUNTER 2019-01-04 08:50 | Inpatient (IN) ==
[2019-01-04] MEDS ORDERED: INSULIN REGULAR 100 UNIT/ML IV ONE ×3 (09:20→19:32)
[2019-01-04] MEDS ORDERED: SODIUM CHLORIDE 0.9% 1,000 ML IV STA (09:20)
[2019-01-04] MEDS ORDERED: ONDANSETRON 4 MG/2 ML VIAL IV STA (09:20)
[2019-01-04 09:29] LABS: Basophils # 0.1 10*3/uL (0.0-0.2); Basophils % 0.6 % (0.0-0.8); Eosinophils % 0.1 % (0.00-10.9); Hematocrit 44.3 VOL% (35.7-47.0); Hemoglobin 13.9 GM/DL (12.0-16.0); Immature Granulocytes % 0.8 %; Immature Granulocytes Absolute 0.07 #; Lymphocytes # 0.6 10*3/uL (1.4-4.0); Mean Corpuscular HGB Conc 31.4 GM/DL (32-36); Mean Corpuscular Volume 97.6 FL (87-102); Mean Platelet Volume 11.5 FL (9.6-12.0); Monocytes % 3.6 % (1.7-12.7); Neutrophils % 87.9 % (38.7-73.9); Platelet Count 178 T/CUMM (130-400); Red Blood Count 4.54 MC/CUMM (3.8-5.5); Red Cell Distribution Width 12.8 % (9.3-17.3); White Blood Count 8.7 T/CUMM (4-12)
[2019-01-04 09:48] LABS: Albumin 4.2 G/DL (3.4-5.0); Bilirubin,Total 0.5 MG/DL (0.2-1.0); Calcium 9.9 MG/DL (8.5-10.1); Total Protein 7.9 G/DL (6.4-8.3)
[2019-01-04 09:54] LABS: Apearance,Urine CLEAR (Clear); Bacteria,Urine Occasional /HPF (Few); Bilirubin,Urine Negative (Negative); Blood, Urine Small mg/dL (Negative); Glucose,Urine (UA) >=500 mg/dL (Negative); Hyaline Casts,Urine 13 /LPF (0-3); Ketones,Urine 80 mg/dL (Negative); Mucus,Urine Occasional /LPF (Occasional); Nitrite,Urine Negative (Negative); Protein,Urine Negative; RBC,Urine <1 /HPF (0-4); Urine Color Yellow (Yellow); Urine Urobilinogen < 2.0 EU/DL (0.2-1.0)
[2019-01-04] MEDS ORDERED: ONDANSETRON 4 MG/2 ML VIAL IV PRN (10:01)
[2019-01-04] MEDS ORDERED: ACETAMINOPHEN 325 MG TABLET PO PRN (10:01)
[2019-01-04] MEDS ORDERED: SODIUM CHLORIDE 0.9% IV PRN (10:02)
[2019-01-04] MEDS ORDERED: MAGNESIUM SULF RIDER 4 GM in PREMIX 1 EACH IV PRN (10:02)
[2019-01-04] MEDS ORDERED: SODIUM PHOSPHATE IV PRN (10:02)
[2019-01-04] MEDS ORDERED: MAGNESIUM SULF RIDER 2 GM in PREMIX 1 EACH IV PRN (10:02)
[2019-01-04] MEDS ORDERED: DEXTROSE 50% 25 GM/50 ML VIAL IV PRN ×2 (10:02)
[2019-01-04] MEDS ORDERED: SODIUM BICARB INJ 100 MEQ in STERILE WATER INJ 400 ML IV PRN (10:02)
[2019-01-04] MEDS ORDERED: INSULIN REGULAR DRIP 100 ML IV SCH (10:30)
[2019-01-04 10:43] LABS: ABG Base Excess -21.8 MMOL/L (-2.5-2.5); ABG HCO3 6.6 MMOL/L (20-26); ABG Oxygen Saturation 95.8 % (95-100); ABG PCO2 22.9 MM HG (35-48); ABG PO2 97.4 MM HG (80-95); ABG TCO2 7.3 MMOL/L (23-27)
[2019-01-04 10:45] LABS: ABG PH 7.077 (7.35-7.45)
[2019-01-04] MEDS ORDERED: INSULIN REGULAR 100 UNIT/ML IV STA ×2 (11:01→11:58)
[2019-01-04 11:23] LABS: Calcium 9.3 MG/DL (8.5-10.1); Osmolality,Calculated 313.4 MOS/KG (273-304)
[2019-01-04] MEDS ORDERED: SODIUM CHLORIDE 0.9% 1,000 ML IV SCH (15:03)
[2019-01-04] MEDS: SODIUM CHLORIDE 0.9% 1,000 ML IV SCH ×3 (15:30→18:15)
[2019-01-04 15:57] LABS: Calcium 8.3 MG/DL (8.5-10.1); Osmolality,Calculated 310.8 MOS/KG (273-304)
[2019-01-04 18:30] LABS: Calcium 6.2 MG/DL (8.5-10.1); Osmolality,Calculated 312.3 MOS/KG (273-304)
[2019-01-04 18:32] LABS: ABG Base Excess -20.1 MMOL/L (-2.5-2.5); ABG HCO3 9.9 MMOL/L (20-26); ABG Oxygen Saturation 96.3 % (95-100); ABG PCO2 25.8 MM HG (35-48); ABG PO2 93.5 MM HG (80-95); ABG TCO2 7.8 MMOL/L (23-27); Allen Test Positive; Pt O2 Delivery Device Room Air
[2019-01-04] MEDS: DOCUSATE SODIUM 100 MG CAPSULE PO SCH (20:47)
[2019-01-04 22:04] LABS: Calcium 7.3 MG/DL (8.5-10.1); Osmolality,Calculated 307.4 MOS/KG (273-304)
[2019-01-04] MEDS: POTASSIUM CHLORIDE RIDER 10 MEQ in PREMIX 1 EACH IV PRN (23:30)
[2019-01-05] MEDS: POTASSIUM CHLORIDE RIDER 10 MEQ in PREMIX 1 EACH IV PRN (00:30)
[2019-01-05] MEDS: SODIUM CHLORIDE 0.45% 1,000 ML IV SCH ×2 (00:44→02:15)
[2019-01-05] MEDS: DEXTROSE 5% NACL 0.45% 1,000 ML IV SCH ×4 (00:45→08:59)
[2019-01-05] MEDS: SODIUM CHLORIDE 0.9% 1,000 ML IV SCH ×4 (02:27→18:22)
[2019-01-05 02:57] LABS: Calcium 7.2 MG/DL (8.5-10.1); Osmolality,Calculated 301.6 MOS/KG (273-304)
[2019-01-05 04:50] LABS: Basophils # 0.1 10*3/uL (0.0-0.2); Basophils % 0.5 % (0.0-0.8); Eosinophils % 0.1 % (0.00-10.9); Hematocrit 31.1 VOL% (35.7-47.0); Hemoglobin 10.3 GM/DL (12.0-16.0); Immature Granulocytes % 0.5 %; Immature Granulocytes Absolute 0.06 #; Lymphocytes # 1.5 10*3/uL (1.4-4.0); Lymphocytes % 13.3 % (21.3-54.2); Mean Corpuscular HGB Conc 33.1 GM/DL (32-36); Mean Corpuscular Volume 93.7 FL (87-102); Mean Platelet Volume 10.5 FL (9.6-12.0); Monocytes % 6.6 % (1.7-12.7); Platelet Count 174 T/CUMM (130-400); Red Blood Count 3.32 MC/CUMM (3.8-5.5); Red Cell Distribution Width 13.2 % (9.3-17.3); White Blood Count 11.1 T/CUMM (4-12)
[2019-01-05 05:01] LABS: Calcium 7.5 MG/DL (8.5-10.1); Osmolality,Calculated 297.7 MOS/KG (273-304)
[2019-01-05] MEDS ORDERED: INSULIN LISPRO 100 UNIT/ML SUBCUT SCH (09:00)
[2019-01-05] MEDS: PANTOPRAZOLE 40 MG TABLET PO SCH (09:09)
[2019-01-05] MEDS: LEVOFLOXACIN INJ 500 MG in PREMIX 1 EACH IV SCH (09:09)
[2019-01-05] MEDS: DOCUSATE SODIUM 100 MG CAPSULE PO SCH ×2 (09:09→20:24)
[2019-01-05 10:00] LABS: Calcium 7.6 MG/DL (8.5-10.1); Osmolality,Calculated 291.7 MOS/KG (273-304)
[2019-01-05] MEDS ORDERED: INSULIN LISPRO 100 UNIT/ML SUBCUT PRN (10:06)
[2019-01-05] MEDS: ATORVASTATIN 40 MG TABLET PO SCH (11:21)
[2019-01-05] MEDS: SERTRALINE 100 MG TABLET PO SCH (11:22)
[2019-01-05] MEDS: FLUTICASONE 50 MCG NASAL SPRAY 16 GM BOTTLE BOTH NARES SCH (11:22)
[2019-01-05] MEDS: LORATADINE 10 MG TABLET PO SCH (11:22)
[2019-01-05] MEDS: CYANOCOBALAMIN 500 MCG TABLET PO SCH (11:22)
[2019-01-05 14:32] LABS: Calcium 7.6 MG/DL (8.5-10.1); Osmolality,Calculated 291.4 MOS/KG (273-304)
[2019-01-05] MEDS ORDERED: TAMSULOSIN 0.4 MG CAPSULE PO SCH (21:00)
[2019-01-05] MEDS ORDERED: GABAPENTIN 300 MG CAPSULE PO SCH (21:00)
[2019-01-06] MEDS: SODIUM CHLORIDE 0.9% 1,000 ML IV SCH (03:37)
[2019-01-06 06:12] LABS: Basophils % 0.2 % (0.0-0.8); Eosinophils % 0.4 % (0.00-10.9); Hematocrit 29.3 VOL% (35.7-47.0); Hemoglobin 9.8 GM/DL (12.0-16.0); Immature Granulocytes % 0.4 %; Immature Granulocytes Absolute 0.02 #; Lymphocytes # 1.2 10*3/uL (1.4-4.0); Lymphocytes % 23.4 % (21.3-54.2); Mean Corpuscular HGB Conc 33.4 GM/DL (32-36); Mean Corpuscular Volume 91.6 FL (87-102); Mean Platelet Volume 10.8 FL (9.6-12.0); Monocytes % 4.8 % (1.7-12.7); Neutrophils % 70.8 % (38.7-73.9); Platelet Count 136 T/CUMM (130-400); Red Cell Distribution Width 13.2 % (9.3-17.3)
[2019-01-06 06:27] LABS: Calcium 7.6 MG/DL (8.5-10.1); Osmolality,Calculated 298.7 MOS/KG (273-304)
[2019-01-06] MEDS: LEVOFLOXACIN INJ 500 MG in PREMIX 1 EACH IV SCH (09:36)
[2019-01-06] MEDS: CYANOCOBALAMIN 500 MCG TABLET PO SCH (09:39)
[2019-01-06] MEDS: PANTOPRAZOLE 40 MG TABLET PO SCH (09:39)
[2019-01-06] MEDS: DOCUSATE SODIUM 100 MG CAPSULE PO SCH (09:40)
[2019-01-06] MEDS: FLUTICASONE 50 MCG NASAL SPRAY 16 GM BOTTLE BOTH NARES SCH (09:40)
[2019-01-06] MEDS: ATORVASTATIN 40 MG TABLET PO SCH (09:40)
[2019-01-06] MEDS: SERTRALINE 100 MG TABLET PO SCH (09:40)
[2019-01-06] MEDS: LORATADINE 10 MG TABLET PO SCH (09:40)
[2019-01-06] MEDS ORDERED: GLUCAGON 1 MG VIAL IM PRN (09:49)
[2019-01-06 11:25] VITALS: BP 150/72
== END 2019-01-06 12:24 | disposition home health service (06) | DRG 638 ==
LOC: EDBD → EDUNIT# → N.ED 08:50 → N.EDINP 09:59 → N.CC 13:31 → N.2E 01-05 16:35
PROVIDERS: ADMIT Internal Medicine; ATTEND Internal Medicine

== ENCOUNTER 2020-08-20 18:00 | Inpatient (IN) ==
[2020-08-20] MEDS ORDERED: SODIUM CHLORIDE 0.9% 500 ML IV STA (18:34)
[2020-08-20] MEDS ORDERED: MORPHINE 4 MG/1 ML VIAL IV STA (18:34)
[2020-08-20] MEDS ORDERED: ONDANSETRON 4 MG/2 ML VIAL IV STA (18:34)
[2020-08-20 20:44] LABS: Basophils % 0.3 % (0.0-0.8); Eosinophils % 0.3 % (0.00-10.9); Hematocrit 39.6 VOL% (35.7-47.0); Immature Granulocytes % 0.5 %; Immature Granulocytes Absolute 0.05 #; Lymphocytes # 0.9 10*3/uL (1.4-4.0); Lymphocytes % 9.1 % (21.3-54.2); Mean Corpuscular HGB Conc 32.8 GM/DL (32-36); Mean Corpuscular Volume 92.1 FL (87-102); Mean Platelet Volume 9.8 FL (9.6-12.0); Monocytes % 4.3 % (1.7-12.7); Neutrophils % 85.5 % (38.7-73.9); Platelet Count 213 T/CUMM (130-400); Red Cell Distribution Width 13.2 % (9.3-17.3); White Blood Count 9.5 T/CUMM (4-12)
[2020-08-20 20:56] LABS: PT Patient Result 10.3 SECS (9.8-11.9)
[2020-08-20 21:03] LABS: Alanine Aminotransferase 30 U/L (13-56); Albumin 3.3 G/DL (3.4-5.0); Alkaline Phosphatase 131 U/L (45-117); Aspartate Amino Transferase 22 U/L (0-37); Bilirubin,Total < 0.39 MG/DL (0.2-1.0); Blood Urea Nitrogen 13 MG/DL (7-18); Calcium 8.4 MG/DL (8.5-10.1); Carbon Dioxide 26 MMOL/L (21-32); Estimated Glom Filtration Rate 69 ML/MIN; Glucose 324 MG/DL (74-106); Osmolality,Calculated 293.3 MOS/KG (273-304); Potassium 4.4 MMOL/L (3.5-5.1); Sodium 141 MMOL/L (136-145); Total Protein 6.4 G/DL (6.4-8.2); Troponin I < 0.015 NG/ML (0.00-0.045)
[2020-08-20 21:17] LABS: Bilirubin,Urine Negative (Negative); Blood, Urine Small mg/dL (Negative); Glucose,Urine (UA) >=500 mg/dL (Negative); Ketones,Urine Negative (Negative); Mucus,Urine Occasional /LPF (Occasional); Nitrite,Urine Negative (Negative); Protein,Urine Negative; RBC,Urine 46 /HPF (0-4); Squamous Epithelial Cell,Urine Occasional /HPF (0-10); Urine Appearance Slightly Hazy (Clear); Urine Color Yellow (Yellow); Urine Specific Gravity 1.017 (1.001-1.035); Urine Urobilinogen < 2.0 EU/DL (0.2-1.0); WBC,Urine 3 /HPF (0-6)
[2020-08-20] MEDS ORDERED: ACETAMINOPHEN 325 MG TABLET PO PRN (22:45)
[2020-08-20] MEDS ORDERED: MORPHINE 4 MG/1 ML VIAL IV PRN (22:45)
[2020-08-20] MEDS ORDERED: ONDANSETRON 4 MG/2 ML VIAL IV PRN (22:45)
[2020-08-20] MEDS ORDERED: DEXTROSE 50% 25 GM/50 ML VIAL IV PRN (22:45)
[2020-08-20] MEDS ORDERED: GLUCAGON 1 MG VIAL IM PRN (22:45)
[2020-08-20] MEDS: SODIUM CHLORIDE 0.9% 1,000 ML IV SCH (23:10)
[2020-08-20] MEDS: ENOXAPARIN 40 MG/0.4 ML SYRINGE SUBCUT SCH (23:10)
[2020-08-20] MEDS: INSULIN REGULAR 100 UNIT/ML SUBCUT SCH (23:10)
[2020-08-20] MEDS: DOCUSATE SODIUM 100 MG CAPSULE PO SCH (23:11)
[2020-08-21 05:30] LABS: Basophils % 0.4 % (0.0-0.8); Eosinophils # 0.2 10*3/uL (0.0-0.87); Eosinophils % 3.3 % (0.00-10.9); Hematocrit 36.8 VOL% (35.7-47.0); Hemoglobin 11.8 GM/DL (12.0-16.0); Immature Granulocytes % 0.3 %; Immature Granulocytes Absolute 0.02 #; Lymphocytes # 1.5 10*3/uL (1.4-4.0); Lymphocytes % 22.4 % (21.3-54.2); Mean Corpuscular HGB Conc 32.1 GM/DL (32-36); Mean Corpuscular Volume 93.9 FL (87-102); Mean Platelet Volume 10.1 FL (9.6-12.0); Neutrophils % 66.6 % (38.7-73.9); Platelet Count 187 T/CUMM (130-400); Red Blood Count 3.92 MC/CUMM (3.8-5.5); Red Cell Distribution Width 13.2 % (9.3-17.3); White Blood Count 6.9 T/CUMM (4-12)
[2020-08-21 05:56] LABS: Albumin 2.7 G/DL (3.4-5.0); Bilirubin,Total 0.8 MG/DL (0.2-1.0); Calcium 8.1 MG/DL (8.5-10.1); Osmolality,Calculated 286.3 MOS/KG (273-304); Potassium 4.4 MMOL/L (3.5-5.1); Risk Ratio 2.57; Total Protein 5.7 G/DL (6.4-8.2); VLDL CHOLESTEROL 15.2 MG/DL
[2020-08-21] MEDS: INSULIN REGULAR 100 UNIT/ML SUBCUT SCH (06:18)
[2020-08-21] MEDS: SODIUM CHLORIDE 0.9% 1,000 ML IV SCH (06:19)
[2020-08-21] MEDS: PANTOPRAZOLE 40 MG TABLET PO SCH (08:43)
[2020-08-21] MEDS: DOCUSATE SODIUM 100 MG CAPSULE PO SCH ×2 (08:43→21:45)
[2020-08-21] MEDS ORDERED: PROMETHAZINE 25 MG TABLET PO PRN (09:03)
[2020-08-21] MEDS ORDERED: LORATADINE 10 MG TABLET PO PRN (09:03)
[2020-08-21] MEDS ORDERED: INSULIN LISPRO 100 UNIT/ML SUBCUT PRN (09:15)
[2020-08-21] MEDS: amLODIPine 10 MG TABLET PO SCH (11:05)
[2020-08-21] MEDS: TAMSULOSIN 0.4 MG CAPSULE PO SCH (21:45)
[2020-08-21] MEDS: GABAPENTIN 300 MG CAPSULE PO SCH (21:45)
[2020-08-21] MEDS: SERTRALINE 100 MG TABLET PO SCH (21:45)
[2020-08-21] MEDS: ENOXAPARIN 40 MG/0.4 ML SYRINGE SUBCUT SCH (21:45)
[2020-08-21] MEDS: ATORVASTATIN 40 MG TABLET PO SCH (21:45)
[2020-08-22] MEDS: FLUTICASONE 50 MCG NASAL SPRAY 16 GM BOTTLE BOTH NARES SCH (08:30)
[2020-08-22] MEDS: amLODIPine 10 MG TABLET PO SCH (08:31)
[2020-08-22] MEDS: PANTOPRAZOLE 40 MG TABLET PO SCH (08:31)
[2020-08-22] MEDS: CYANOCOBALAMIN 500 MCG TABLET PO SCH (08:31)
[2020-08-22] MEDS: DOCUSATE SODIUM 100 MG CAPSULE PO SCH ×2 (08:31→20:02)
[2020-08-22] MEDS: GABAPENTIN 300 MG CAPSULE PO SCH (20:02)
[2020-08-22] MEDS: ATORVASTATIN 40 MG TABLET PO SCH (20:02)
[2020-08-22] MEDS: SERTRALINE 100 MG TABLET PO SCH (20:02)
[2020-08-22] MEDS: TAMSULOSIN 0.4 MG CAPSULE PO SCH (20:02)
[2020-08-22] MEDS: ENOXAPARIN 40 MG/0.4 ML SYRINGE SUBCUT SCH (23:17)
[2020-08-23 05:07] LABS: Basophils % 0.5 % (0.0-0.8); Eosinophils # 0.4 10*3/uL (0.0-0.87); Eosinophils % 6.3 % (0.00-10.9); Hematocrit 33.8 VOL% (35.7-47.0); Hemoglobin 11.4 GM/DL (12.0-16.0); Immature Granulocytes % 0.2 %; Immature Granulocytes Absolute 0.01 #; Lymphocytes # 1.6 10*3/uL (1.4-4.0); Lymphocytes % 28.2 % (21.3-54.2); Mean Corpuscular HGB Conc 33.7 GM/DL (32-36); Mean Corpuscular Volume 89.7 FL (87-102); Mean Platelet Volume 9.7 FL (9.6-12.0); Monocytes % 7.4 % (1.7-12.7); Neutrophils % 57.4 % (38.7-73.9); Platelet Count 160 T/CUMM (130-400); Red Blood Count 3.77 MC/CUMM (3.8-5.5); Red Cell Distribution Width 12.8 % (9.3-17.3); White Blood Count 5.5 T/CUMM (4-12)
[2020-08-23 05:42] LABS: Calcium 8.5 MG/DL (8.5-10.1); Osmolality,Calculated 283.4 MOS/KG (273-304); Potassium 4.3 MMOL/L (3.5-5.1)
[2020-08-23 07:05] VITALS: BP 124/49
[2020-08-23] MEDS: PANTOPRAZOLE 40 MG TABLET PO SCH (08:43)
[2020-08-23] MEDS: CYANOCOBALAMIN 500 MCG TABLET PO SCH (08:43)
[2020-08-23] MEDS: DOCUSATE SODIUM 100 MG CAPSULE PO SCH (08:43)
[2020-08-23] MEDS: FLUTICASONE 50 MCG NASAL SPRAY 16 GM BOTTLE BOTH NARES SCH (08:43)
[2020-08-23] MEDS: amLODIPine 10 MG TABLET PO SCH (08:43)
== END 2020-08-23 10:56 | disposition swing bed (61) | DRG 536 ==
LOC: EDUNIT# → EDBD → N.ED 18:00 → N.EDINP 20:35 → N.3E 22:39
PROVIDERS: ADMIT Internal Medicine; ATTEND Internal Medicine

== ENCOUNTER 2021-02-08 08:21 | Inpatient (IN) ==
[2021-02-08] MEDS ORDERED: ONDANSETRON 4 MG/2 ML VIAL IV STA (08:49)
[2021-02-08] MEDS ORDERED: HYDROmorphone 2 MG/1 ML VIAL IV STA (08:49)
[2021-02-08] MEDS: SODIUM CHLORIDE 0.9% 1,000 ML IV SCH ×2 (09:58→23:11)
[2021-02-08 10:00] LABS: Basophils % 0.2 % (0.0-0.8); Eosinophils # 0.3 10*3/uL (0.0-0.87); Eosinophils % 3.3 % (0.00-10.9); Hematocrit 34.4 VOL% (35.7-47.0); Hemoglobin 11.1 GM/DL (12.0-16.0); Immature Granulocytes % 0.4 %; Immature Granulocytes Absolute 0.04 #; Lymphocytes # 1.6 10*3/uL (1.4-4.0); Mean Corpuscular HGB Conc 32.3 GM/DL (32-36); Mean Platelet Volume 10.4 FL (9.6-12.0); Monocytes % 4.1 % (1.7-12.7); Platelet Count 250 T/CUMM (130-400); Red Blood Count 3.74 MC/CUMM (3.8-5.5); Red Cell Distribution Width 13.7 % (9.3-17.3); White Blood Count 10.1 T/CUMM (4-12)
[2021-02-08 10:11] LABS: Calcium 8.1 MG/DL (8.5-10.1); Osmolality,Calculated 292.8 MOS/KG (273-304); Potassium 4.4 MMOL/L (3.5-5.1)
[2021-02-08 10:23] LABS: Bilirubin,Urine Negative (Negative); Blood, Urine Small mg/dL (Negative); Glucose,Urine (UA) Negative (Negative); Ketones,Urine Negative (Negative); Mucus,Urine Occasional /LPF (Occasional); Nitrite,Urine Negative (Negative); Protein,Urine Negative; RBC,Urine 1 /HPF (0-4); Urine Appearance CLEAR (Clear); Urine Color Yellow (Yellow); Urine Urobilinogen < 2.0 EU/DL (0.2-1.0)
[2021-02-08] MEDS ORDERED: GLUCAGON 1 MG VIAL IM PRN (10:30)
[2021-02-08] MEDS ORDERED: DEXTROSE 50% 25 GM/50 ML VIAL IV PRN (10:30)
[2021-02-08 11:25] LABS: PT Patient Result 10.9 SECS (10.5-12.0); Partial Thromboplastin Time 22.5 SECS (23.9-33.8)
[2021-02-08] MEDS ORDERED: ACETAMINOPHEN 325 MG TABLET PO PRN (11:27)
[2021-02-08] MEDS: HYDROmorphone 2 MG/1 ML VIAL IV PRN ×2 (13:51→21:27)
[2021-02-08] MEDS ORDERED: INFLUENZA VIRUS VACCINE 0.5 ML SYRINGE IM ONE (14:53)
[2021-02-08] MEDS: ENOXAPARIN 40 MG/0.4 ML SYRINGE SUBCUT SCH (15:52)
[2021-02-08] MEDS: INSULIN LISPRO 100 UNIT/ML SUBCUT SCH ×2 (15:52→21:26)
[2021-02-08] MEDS: TAMSULOSIN 0.4 MG CAPSULE PO SCH (21:26)
[2021-02-08] MEDS: SERTRALINE 100 MG TABLET PO SCH (21:26)
[2021-02-08] MEDS: ATORVASTATIN 40 MG TABLET PO SCH (21:26)
[2021-02-09] MEDS: HYDROmorphone 2 MG/1 ML VIAL IV PRN (04:14)
[2021-02-09] MEDS ORDERED: ROCURONIUM 50 MG/5 ML VIAL IV ONE (06:44)
[2021-02-09] MEDS ORDERED: ONDANSETRON 4 MG/2 ML VIAL ONE (06:44)
[2021-02-09] MEDS ORDERED: fentaNYL 100 MCG/2 ML VIAL ONE (06:44)
[2021-02-09] MEDS ORDERED: LIDOCAINE 2% 5 ML VIAL ONE (06:44)
[2021-02-09] MEDS ORDERED: propofoL 200 MG/20 ML VIAL IV ONE (06:44)
[2021-02-09] MEDS ORDERED: SEVOFLURANE 1 UNIT/15 MINUTE INH ONE ×8 (06:45→09:18)
[2021-02-09] MEDS ORDERED: DEXAMETHASONE 4 MG/1 ML VIAL ONE ×3 (06:45→07:00)
[2021-02-09] MEDS ORDERED: MIDAZOLAM 2 MG/2 ML VIAL ONE (06:49)
[2021-02-09] MEDS ORDERED: ROPIVACAINE 0.5% 30 ML VIAL ONE (07:00)
[2021-02-09] MEDS ORDERED: CLINDAMYCIN INJ 900 MG/50 ML PREMIX IV ONE (07:00)
[2021-02-09] MEDS ORDERED: LIDOCAINE 50 MG/5 ML SYRINGE ONE (07:00)
[2021-02-09] MEDS: INSULIN LISPRO 100 UNIT/ML SUBCUT SCH ×4 (07:30→22:34)
[2021-02-09] MEDS ORDERED: PHENYLEPHRINE 1 MG/10 ML SYRINGE IV ONE ×2 (07:47)
[2021-02-09] MEDS ORDERED: ePHEDrine 50 MG/ML VIAL ONE (07:53)
[2021-02-09] MEDS ORDERED: PHENYLEPHRINE 10 MG/1 ML VIAL IV ONE (08:26)
[2021-02-09] MEDS ORDERED: INSULIN REGULAR 100 UNIT/ML ONE (08:31)
[2021-02-09] MEDS ORDERED: LACTULOSE 20 GM/30 ML UDCUP PO PRN (08:34)
[2021-02-09] MEDS ORDERED: BISACODYL 10 MG SUPP RECTAL PRN (08:34)
[2021-02-09] MEDS ORDERED: PROMETHAZINE 25 MG/1 ML VIAL IM PRN (08:34)
[2021-02-09] MEDS ORDERED: diphenhydrAMINE CAP 25 MG CAPSULE PO PRN (08:34)
[2021-02-09] MEDS ORDERED: MAGNESIUM HYDROXIDE SUSP 30 ML UDCUP PO PRN (08:34)
[2021-02-09] MEDS ORDERED: PANTOPRAZOLE 40 MG VIAL IV SCH (09:00)
[2021-02-09] MEDS ORDERED: LACTATED RINGERS 1,000 ML IV ONE (09:18)
[2021-02-09] MEDS ORDERED: NEOSTIGMINE 10 MG/10 ML VIAL ONE (09:39)
[2021-02-09] MEDS ORDERED: GLYCOPYRROLATE 0.4 MG/2 ML VIAL ONE (09:39)
[2021-02-09] MEDS: amLODIPine 10 MG TABLET PO SCH (11:19)
[2021-02-09] MEDS ORDERED: INSULIN LISPRO 100 UNIT/ML SUBCUT ONE (11:37)
[2021-02-09] MEDS: PANTOPRAZOLE 40 MG TABLET PO SCH (12:02)
[2021-02-09] MEDS: ENOXAPARIN 40 MG/0.4 ML SYRINGE SUBCUT SCH (12:02)
[2021-02-09] MEDS: SODIUM CHLORIDE 0.9% 1,000 ML IV SCH (12:04)
[2021-02-09] MEDS: CLINDAMYCIN INJ 900 MG/50 ML PREMIX IV SCH ×2 (15:08→23:32)
[2021-02-09] MEDS: TAMSULOSIN 0.4 MG CAPSULE PO SCH (20:21)
[2021-02-09] MEDS: SERTRALINE 100 MG TABLET PO SCH (20:21)
[2021-02-09] MEDS: ATORVASTATIN 40 MG TABLET PO SCH (20:21)
[2021-02-10] MEDS: SODIUM CHLORIDE 0.9% 1,000 ML IV SCH (02:05)
[2021-02-10 05:44] LABS: Calcium 7.8 MG/DL (8.5-10.1); Osmolality,Calculated 290.7 MOS/KG (273-304); Potassium 4.8 MMOL/L (3.5-5.1)
[2021-02-10 05:59] LABS: Basophils % 0.1 % (0.0-0.8); Immature Granulocytes % 0.7 %; Immature Granulocytes Absolute 0.05 #; Lymphocytes % 13.8 % (21.3-54.2); Mean Corpuscular HGB Conc 32.4 GM/DL (32-36); Mean Corpuscular Volume 94.1 FL (87-102); Mean Platelet Volume 10.7 FL (9.6-12.0); Monocytes % 9.8 % (1.7-12.7); Neutrophils % 75.6 % (38.7-73.9); Platelet Count 153 T/CUMM (130-400); Red Blood Count 1.87 MC/CUMM (3.8-5.5); White Blood Count 7.3 T/CUMM (4-12)
[2021-02-10 06:01] LABS: Hematocrit 17.6 VOL% (35.7-47.0); Hemoglobin 5.7 GM/DL (12.0-16.0)
[2021-02-10] MEDS: CLINDAMYCIN INJ 900 MG/50 ML PREMIX IV SCH (07:00)
[2021-02-10] MEDS ORDERED: SODIUM CHLORIDE 0.9% 1,000 ML IV PRN (07:09)
[2021-02-10 07:58] LABS: Hematocrit 18.2 VOL% (35.7-47.0)
[2021-02-10 08:02] LABS: Hemoglobin 5.7 GM/DL (12.0-16.0)
[2021-02-10] MEDS: INSULIN LISPRO 100 UNIT/ML SUBCUT SCH ×5 (08:49→20:37)
[2021-02-10] MEDS: PANTOPRAZOLE 40 MG TABLET PO SCH (08:49)
[2021-02-10] MEDS: INSULIN GLARGINE 100 UNIT/ML SUBCUT SCH (08:50)
[2021-02-10] MEDS: amLODIPine 10 MG TABLET PO SCH (08:53)
[2021-02-10] MEDS: SERTRALINE 100 MG TABLET PO SCH (20:37)
[2021-02-10] MEDS: TAMSULOSIN 0.4 MG CAPSULE PO SCH (20:38)
[2021-02-10] MEDS: ATORVASTATIN 40 MG TABLET PO SCH (20:38)
[2021-02-11] MEDS: ONDANSETRON 4 MG/2 ML VIAL IV PRN (00:08)
[2021-02-11] MEDS: HYDROmorphone 2 MG/1 ML VIAL IV PRN (00:09)
[2021-02-11] MEDS: SODIUM CHLORIDE 0.9% 1,000 ML IV SCH (01:58)
[2021-02-11 05:23] LABS: Basophils % 0.4 % (0.0-0.8); Eosinophils # 0.2 10*3/uL (0.0-0.87); Eosinophils % 2.2 % (0.00-10.9); Hematocrit 24.3 VOL% (35.7-47.0); Immature Granulocytes % 0.4 %; Immature Granulocytes Absolute 0.03 #; Lymphocytes # 1.2 10*3/uL (1.4-4.0); Mean Corpuscular HGB Conc 33.7 GM/DL (32-36); Mean Corpuscular Volume 91.7 FL (87-102); Mean Platelet Volume 10.5 FL (9.6-12.0); Monocytes % 9.9 % (1.7-12.7); Neutrophils % 70.1 % (38.7-73.9); Platelet Count 135 T/CUMM (130-400); Red Cell Distribution Width 14.6 % (9.3-17.3); White Blood Count 6.8 T/CUMM (4-12)
[2021-02-11 06:28] LABS: Hemoglobin 8.2 GM/DL (12.0-16.0)
[2021-02-11 06:29] LABS: Red Blood Count 2.65 MC/CUMM (3.8-5.5)
[2021-02-11] MEDS: INSULIN GLARGINE 100 UNIT/ML SUBCUT SCH (08:09)
[2021-02-11] MEDS: INSULIN LISPRO 100 UNIT/ML SUBCUT SCH ×4 (08:09→21:05)
[2021-02-11] MEDS: PANTOPRAZOLE 40 MG TABLET PO SCH (08:10)
[2021-02-11] MEDS: amLODIPine 10 MG TABLET PO SCH (08:10)
[2021-02-11] MEDS ORDERED: SODIUM CHLORIDE 0.9% 1,000 ML IV PRN (08:35)
[2021-02-11 16:55] LABS: Hematocrit 30.2 VOL% (35.7-47.0); Hemoglobin 9.8 GM/DL (12.0-16.0)
[2021-02-11] MEDS: TAMSULOSIN 0.4 MG CAPSULE PO SCH (21:39)
[2021-02-11] MEDS: SERTRALINE 100 MG TABLET PO SCH (21:40)
[2021-02-11] MEDS: ATORVASTATIN 40 MG TABLET PO SCH (21:40)
[2021-02-12] MEDS: SODIUM CHLORIDE 0.9% 1,000 ML IV SCH ×2 (03:54→14:32)
[2021-02-12 05:15] LABS: Basophils % 0.1 % (0.0-0.8); Eosinophils # 0.3 10*3/uL (0.0-0.87); Eosinophils % 4.2 % (0.00-10.9); Hematocrit 29.7 VOL% (35.7-47.0); Hemoglobin 9.5 GM/DL (12.0-16.0); Immature Granulocytes % 0.5 %; Immature Granulocytes Absolute 0.04 #; Lymphocytes % 12.9 % (21.3-54.2); Mean Corpuscular Volume 92.5 FL (87-102); Mean Platelet Volume 10.4 FL (9.6-12.0); Neutrophils % 73.3 % (38.7-73.9); Platelet Count 154 T/CUMM (130-400); Red Blood Count 3.21 MC/CUMM (3.8-5.5); Red Cell Distribution Width 14.6 % (9.3-17.3); White Blood Count 7.5 T/CUMM (4-12)
[2021-02-12 05:39] LABS: Band Neutrophils 1 % (0-10); Eosinophils 3 % (0-10); Hypochromasia 1+; Lymphocytes 12 % (20-55); Microcytosis 1+; Platelet Estimate Adequate; Segmented Neutrophils 78 % (50-85); Total Cells Counted 100
[2021-02-12] MEDS: INSULIN LISPRO 100 UNIT/ML SUBCUT SCH ×2 (08:51→12:22)
[2021-02-12] MEDS: PANTOPRAZOLE 40 MG TABLET PO SCH (08:51)
[2021-02-12] MEDS: amLODIPine 10 MG TABLET PO SCH (08:52)
[2021-02-12] MEDS: ONDANSETRON 4 MG/2 ML VIAL IV PRN (08:54)
[2021-02-12] MEDS ORDERED: INSULIN GLARGINE 100 UNIT/ML SUBCUT SCH ×2 (09:00)
[2021-02-12 11:21] VITALS: BP 116/47
== END 2021-02-12 14:54 | disposition swing bed (61) | DRG 481 ==
LOC: EDUNIT# → EDBD → N.ED 08:21 → N.EDINP 13:18 → N.3E 13:51
PROVIDERS: ADMIT Internal Medicine; ATTEND Internal Medicine

== ENCOUNTER 2021-02-14 02:21 | Inpatient (IN) ==
[2021-02-14] MEDS ORDERED: ALBUTEROL/IPRATROPIUM 3 ML NEB RESP TX STA (02:44)
[2021-02-14] MEDS ORDERED: SODIUM CHLORIDE 0.9% 500 ML IV STA (02:44)
[2021-02-14] MEDS ORDERED: ONDANSETRON 4 MG/2 ML VIAL IV STA (02:44)
[2021-02-14] MEDS ORDERED: VANCOMYCIN INJ 1,000 MG in SODIUM CHLORIDE 0.9% 250 ML IV STA ×2 (02:44→02:49)
[2021-02-14 03:15] LABS: ABG Base Excess 3.5 MMOL/L (-2.5-2.5); ABG Oxygen Saturation 90.9 % (95-100); ABG PCO2 36.5 MM HG (35-48); ABG PH 7.487 (7.35-7.45); ABG TCO2 28.1 MMOL/L (23-27)
[2021-02-14 03:19] LABS: Basophils % 0.1 % (0.0-0.8); Eosinophils # 0.3 10*3/uL (0.0-0.87); Eosinophils % 4.4 % (0.00-10.9); Hematocrit 27.8 VOL% (35.7-47.0); Hemoglobin 9.1 GM/DL (12.0-16.0); Immature Granulocytes % 0.5 %; Immature Granulocytes Absolute 0.04 #; Lymphocytes # 0.7 10*3/uL (1.4-4.0); Lymphocytes % 9.6 % (21.3-54.2); Mean Corpuscular HGB Conc 32.7 GM/DL (32-36); Mean Corpuscular Volume 91.7 FL (87-102); Monocytes % 6.9 % (1.7-12.7); Neutrophils % 78.5 % (38.7-73.9); Platelet Count 226 T/CUMM (130-400); Red Blood Count 3.03 MC/CUMM (3.8-5.5); Red Cell Distribution Width 14.3 % (9.3-17.3); White Blood Count 7.5 T/CUMM (4-12)
[2021-02-14 03:37] LABS: INR 0.9; PT Patient Result 10.3 SECS (10.5-12.0)
[2021-02-14 03:38] LABS: Alanine Aminotransferase 17 U/L (13-56); Alkaline Phosphatase 98 U/L (45-117); Aspartate Amino Transferase 17 U/L (0-37); Blood Urea Nitrogen 14 MG/DL (7-18); Calcium 8.3 MG/DL (8.5-10.1); Carbon Dioxide 27 MMOL/L (21-32); Estimated Glom Filtration Rate 85 ML/MIN; Glucose 256 MG/DL (74-106); Osmolality,Calculated 290.3 MOS/KG (273-304); Potassium 3.8 MMOL/L (3.5-5.1); Sodium 141 MMOL/L (136-145); Total Protein 5.6 G/DL (6.4-8.2)
[2021-02-14] MEDS ORDERED: DEXTROSE 50% 25 GM/50 ML VIAL IV PRN (08:31)
[2021-02-14] MEDS ORDERED: ONDANSETRON 4 MG/2 ML VIAL IV PRN (08:31)
[2021-02-14] MEDS ORDERED: MORPHINE 2 MG/1 ML SYRINGE IV PRN (08:31)
[2021-02-14] MEDS ORDERED: ACETAMINOPHEN 325 MG TABLET PO PRN (08:31)
[2021-02-14] MEDS ORDERED: GLUCAGON 1 MG VIAL IM PRN (08:31)
[2021-02-14] MEDS ORDERED: INFLUENZA VIRUS VACCINE 0.5 ML SYRINGE IM ONE (08:37)
[2021-02-14] MEDS ORDERED: LACTULOSE 20 GM/30 ML UDCUP PO PRN (08:39)
[2021-02-14] MEDS ORDERED: FUROSEMIDE 40 MG TABLET PO ONE (08:46)
[2021-02-14] MEDS: ALBUTEROL/IPRATROPIUM 3 ML NEB RESP TX SCH ×5 (08:52→23:55)
[2021-02-14] MEDS: INSULIN REGULAR 100 UNIT/ML SUBCUT SCH ×3 (12:57→18:53)
[2021-02-14] MEDS: ENOXAPARIN 40 MG/0.4 ML SYRINGE SUBCUT SCH (12:57)
[2021-02-14] MEDS: DOCUSATE SODIUM 100 MG CAPSULE PO SCH ×2 (12:58→20:50)
[2021-02-14] MEDS: INSULIN GLARGINE 100 UNIT/ML SUBCUT SCH (12:58)
[2021-02-14] MEDS: GABAPENTIN 300 MG CAPSULE PO SCH (12:59)
[2021-02-14] MEDS: amLODIPine 10 MG TABLET PO SCH (12:59)
[2021-02-14] MEDS: PANTOPRAZOLE 40 MG VIAL IV SCH (13:12)
[2021-02-14] MEDS: MEROPENEM 500 MG in SODIUM CHLORIDE 0.9% 100 ML IV SCH ×3 (13:16→20:51)
[2021-02-14] MEDS: SODIUM CHLORIDE 0.9% 1,000 ML IV SCH ×2 (13:54→22:44)
[2021-02-14 14:06] LABS: Bacteria,Urine Many /HPF (Few); Bilirubin,Urine Negative (Negative); Blood, Urine Small mg/dL (Negative); Glucose,Urine (UA) >=500 mg/dL (Negative); Ketones,Urine 20 mg/dL (Negative); Mucus,Urine Occasional /LPF (Occasional); Nitrite,Urine Positive (Negative); Protein,Urine Negative; RBC,Urine 4 /HPF (0-4); Squamous Epithelial Cell,Urine Occasional /HPF (0-10); Urine Appearance CLEAR (Clear); Urine Color Yellow (Yellow); Urine Specific Gravity 1.038 (1.001-1.035); Urine Urobilinogen < 2.0 EU/DL (0.2-1.0)
[2021-02-14] MEDS: ATORVASTATIN 40 MG TABLET PO SCH (20:50)
[2021-02-14] MEDS: SERTRALINE 100 MG TABLET PO SCH (20:50)
[2021-02-14] MEDS: TAMSULOSIN 0.4 MG CAPSULE PO SCH (20:50)
[2021-02-15] MEDS: INSULIN REGULAR 100 UNIT/ML SUBCUT SCH ×4 (00:25→17:57)
[2021-02-15] MEDS: MEROPENEM 500 MG in SODIUM CHLORIDE 0.9% 100 ML IV SCH ×4 (03:25→20:37)
[2021-02-15] MEDS: ALBUTEROL/IPRATROPIUM 3 ML NEB RESP TX SCH ×6 (03:43→23:33)
[2021-02-15 05:06] LABS: Basophils % 0.3 % (0.0-0.8); Eosinophils # 0.3 10*3/uL (0.0-0.87); Hematocrit 24.8 VOL% (35.7-47.0); Hemoglobin 7.8 GM/DL (12.0-16.0); Immature Granulocytes % 0.8 %; Immature Granulocytes Absolute 0.05 #; Lymphocytes # 0.9 10*3/uL (1.4-4.0); Lymphocytes % 13.4 % (21.3-54.2); Mean Corpuscular HGB Conc 31.5 GM/DL (32-36); Mean Corpuscular Volume 91.9 FL (87-102); Monocytes % 7.3 % (1.7-12.7); Neutrophils % 74.2 % (38.7-73.9); Platelet Count 261 T/CUMM (130-400); Red Cell Distribution Width 14.2 % (9.3-17.3); White Blood Count 6.3 T/CUMM (4-12)
[2021-02-15 05:24] LABS: Albumin 1.7 G/DL (3.4-5.0); Calcium 7.5 MG/DL (8.5-10.1); Osmolality,Calculated 296.3 MOS/KG (273-304); Potassium 3.4 MMOL/L (3.5-5.1); Total Protein 4.7 G/DL (6.4-8.2)
[2021-02-15] MEDS: ENOXAPARIN 40 MG/0.4 ML SYRINGE SUBCUT SCH (08:54)
[2021-02-15] MEDS: INSULIN GLARGINE 100 UNIT/ML SUBCUT SCH (08:54)
[2021-02-15] MEDS: DOCUSATE SODIUM 100 MG CAPSULE PO SCH ×2 (08:55→20:36)
[2021-02-15] MEDS: amLODIPine 10 MG TABLET PO SCH (08:55)
[2021-02-15] MEDS: PANTOPRAZOLE 40 MG VIAL IV SCH (08:55)
[2021-02-15] MEDS: SODIUM CHLORIDE 0.45% 1,000 ML IV SCH (08:56)
[2021-02-15] MEDS: GABAPENTIN 300 MG CAPSULE PO SCH (08:56)
[2021-02-15] MEDS: SERTRALINE 100 MG TABLET PO SCH (20:36)
[2021-02-15] MEDS: ATORVASTATIN 40 MG TABLET PO SCH (20:36)
[2021-02-15] MEDS: TAMSULOSIN 0.4 MG CAPSULE PO SCH (20:36)
[2021-02-16] MEDS: INSULIN REGULAR 100 UNIT/ML SUBCUT SCH ×5 (00:20→23:57)
[2021-02-16] MEDS: MEROPENEM 500 MG in SODIUM CHLORIDE 0.9% 100 ML IV SCH ×4 (02:06→20:41)
[2021-02-16] MEDS: ALBUTEROL/IPRATROPIUM 3 ML NEB RESP TX SCH ×6 (03:17→23:55)
[2021-02-16] MEDS: SODIUM CHLORIDE 0.45% 1,000 ML IV SCH ×2 (05:43→11:51)
[2021-02-16 05:44] LABS: Basophils % 0.1 % (0.0-0.8); Eosinophils # 0.6 10*3/uL (0.0-0.87); Eosinophils % 8.8 % (0.00-10.9); Hematocrit 27.5 VOL% (35.7-47.0); Hemoglobin 9.7 GM/DL (12.0-16.0); Immature Granulocytes Absolute 0.07 #; Lymphocytes # 0.9 10*3/uL (1.4-4.0); Lymphocytes % 13.6 % (21.3-54.2); Mean Corpuscular HGB Conc 35.3 GM/DL (32-36); Mean Corpuscular Volume 91.1 FL (87-102); Mean Platelet Volume 10.3 FL (9.6-12.0); Monocytes % 8.5 % (1.7-12.7); Platelet Count 361 T/CUMM (130-400); Red Blood Count 3.02 MC/CUMM (3.8-5.5); Red Cell Distribution Width 14.6 % (9.3-17.3); White Blood Count 6.7 T/CUMM (4-12)
[2021-02-16 06:11] LABS: Calcium 8.2 MG/DL (8.5-10.1); Osmolality,Calculated 284.8 MOS/KG (273-304); Potassium 2.9 MMOL/L (3.5-5.1)
[2021-02-16] MEDS: POTASSIUM CHLORIDE RIDER 10 MEQ/100 ML PREMIX IV PRN ×5 (06:59→23:53)
[2021-02-16] MEDS: INSULIN GLARGINE 100 UNIT/ML SUBCUT SCH (09:52)
[2021-02-16] MEDS: amLODIPine 10 MG TABLET PO SCH (09:52)
[2021-02-16] MEDS: PANTOPRAZOLE 40 MG VIAL IV SCH (09:52)
[2021-02-16] MEDS: GABAPENTIN 300 MG CAPSULE PO SCH (09:52)
[2021-02-16] MEDS: DOCUSATE SODIUM 100 MG CAPSULE PO SCH ×2 (09:53→20:41)
[2021-02-16] MEDS: ENOXAPARIN 40 MG/0.4 ML SYRINGE SUBCUT SCH (09:53)
[2021-02-16] MEDS: SERTRALINE 100 MG TABLET PO SCH (20:41)
[2021-02-16] MEDS: TAMSULOSIN 0.4 MG CAPSULE PO SCH (20:41)
[2021-02-16] MEDS: ATORVASTATIN 40 MG TABLET PO SCH (20:41)
[2021-02-17] MEDS: MEROPENEM 500 MG in SODIUM CHLORIDE 0.9% 100 ML IV SCH ×4 (02:14→21:11)
[2021-02-17] MEDS: SODIUM CHLORIDE 0.45% 1,000 ML IV SCH ×2 (02:18→15:20)
[2021-02-17] MEDS: ALBUTEROL/IPRATROPIUM 3 ML NEB RESP TX SCH ×6 (04:00→23:41)
[2021-02-17 06:00] LABS: Basophils % 0.2 % (0.0-0.8); Eosinophils # 0.3 10*3/uL (0.0-0.87); Eosinophils % 5.2 % (0.00-10.9); Hematocrit 27.2 VOL% (35.7-47.0); Hemoglobin 8.8 GM/DL (12.0-16.0); Immature Granulocytes % 1.3 %; Immature Granulocytes Absolute 0.08 #; Mean Corpuscular HGB Conc 32.4 GM/DL (32-36); Mean Corpuscular Volume 91.9 FL (87-102); Mean Platelet Volume 10.3 FL (9.6-12.0); Monocytes % 8.5 % (1.7-12.7); Neutrophils % 68.8 % (38.7-73.9); Platelet Count 399 T/CUMM (130-400); Red Blood Count 2.96 MC/CUMM (3.8-5.5); Red Cell Distribution Width 14.9 % (9.3-17.3); White Blood Count 6.4 T/CUMM (4-12)
[2021-02-17 06:19] LABS: Osmolality,Calculated 285.1 MOS/KG (273-304)
[2021-02-17] MEDS: INSULIN REGULAR 100 UNIT/ML SUBCUT SCH (07:17)
[2021-02-17] MEDS: DOCUSATE SODIUM 100 MG CAPSULE PO SCH ×2 (10:01→21:13)
[2021-02-17] MEDS: GABAPENTIN 300 MG CAPSULE PO SCH (10:01)
[2021-02-17] MEDS: amLODIPine 10 MG TABLET PO SCH (10:02)
[2021-02-17] MEDS: ENOXAPARIN 40 MG/0.4 ML SYRINGE SUBCUT SCH (10:02)
[2021-02-17] MEDS: INSULIN GLARGINE 100 UNIT/ML SUBCUT SCH (10:03)
[2021-02-17] MEDS: PANTOPRAZOLE 40 MG VIAL IV SCH (11:13)
[2021-02-17] MEDS: INSULIN LISPRO 100 UNIT/ML SUBCUT SCH ×3 (11:42→20:20)
[2021-02-17] MEDS: LEVOFLOXACIN 500 MG TABLET PO SCH (16:11)
[2021-02-17] MEDS: ATORVASTATIN 40 MG TABLET PO SCH (21:13)
[2021-02-17] MEDS: SERTRALINE 100 MG TABLET PO SCH (21:13)
[2021-02-17] MEDS: TAMSULOSIN 0.4 MG CAPSULE PO SCH (21:13)
[2021-02-18] MEDS: MEROPENEM 500 MG in SODIUM CHLORIDE 0.9% 100 ML IV SCH ×3 (02:12→17:30)
[2021-02-18] MEDS: SODIUM CHLORIDE 0.45% 1,000 ML IV SCH (02:28)
[2021-02-18] MEDS: ALBUTEROL/IPRATROPIUM 3 ML NEB RESP TX SCH ×4 (03:29→14:37)
[2021-02-18] MEDS: INSULIN LISPRO 100 UNIT/ML SUBCUT SCH ×2 (10:09→13:17)
[2021-02-18] MEDS: GABAPENTIN 300 MG CAPSULE PO SCH (10:10)
[2021-02-18] MEDS: DOCUSATE SODIUM 100 MG CAPSULE PO SCH (10:10)
[2021-02-18] MEDS: amLODIPine 10 MG TABLET PO SCH (10:10)
[2021-02-18] MEDS: ENOXAPARIN 40 MG/0.4 ML SYRINGE SUBCUT SCH (10:11)
[2021-02-18] MEDS: INSULIN GLARGINE 100 UNIT/ML SUBCUT SCH (10:11)
[2021-02-18] MEDS: LEVOFLOXACIN 500 MG TABLET PO SCH ×2 (10:14→15:00)
[2021-02-18] MEDS: PANTOPRAZOLE 40 MG VIAL IV SCH (11:37)
[2021-02-18 12:34] VITALS: BP 126/46
== END 2021-02-18 16:38 | disposition swing bed (61) | DRG 195 ==
LOC: N.ED 02:21 → N.EDINP 05:41 → N.TELEN 08:22
PROVIDERS: ADMIT Internal Medicine; ATTEND Internal Medicine

== ENCOUNTER 2021-05-19 17:51 | Inpatient (IN) ==
[2021-05-20] MEDS ORDERED: ONDANSETRON 4 MG/2 ML VIAL IV STA (00:36)
[2021-05-20] MEDS ORDERED: SODIUM CHLORIDE 0.9% 1,000 ML IV STA ×2 (00:36→01:18)
[2021-05-20 01:00] LABS: Basophils % 0.4 % (0.0-0.8); Eosinophils % 0.1 % (0.00-10.9); Hemoglobin 13.3 GM/DL (12.0-16.0); Immature Granulocytes % 0.5 %; Immature Granulocytes Absolute 0.05 #; Lymphocytes % 18.9 % (21.3-54.2); Mean Corpuscular HGB Conc 32.4 GM/DL (32-36); Mean Corpuscular Volume 90.1 FL (87-102); Mean Platelet Volume 11.8 FL (9.6-12.0); Neutrophils % 75.1 % (38.7-73.9); Platelet Count 200 T/CUMM (130-400); Red Blood Count 4.55 MC/CUMM (3.8-5.5); Red Cell Distribution Width 13.6 % (9.3-17.3); White Blood Count 10.6 T/CUMM (4-12)
[2021-05-20 01:09] LABS: Bilirubin,Urine Negative (Negative); Blood, Urine Small mg/dL (Negative); Glucose,Urine (UA) >=500 mg/dL (Negative); Hyaline Casts,Urine 80 /LPF (0-3); Ketones,Urine 80 mg/dL (Negative); Mucus,Urine Occasional /LPF (Occasional); Nitrite,Urine Negative (Negative); Protein,Urine 100 MG/DL; Squamous Epithelial Cell,Urine Occasional /HPF (0-10); Urine Appearance CLEAR (Clear); Urine Color Yellow (Yellow); Urine Urobilinogen < 2.0 EU/DL (<2.0)
[2021-05-20 01:20] LABS: Albumin 3.1 G/DL (3.4-5.0); Bilirubin,Total 0.6 MG/DL (0.20-1.00); Calcium 8.9 MG/DL (8.5-10.1); Osmolality,Calculated 290.5 MOS/KG (273-304); Potassium 4.7 MMOL/L (3.5-5.1)
[2021-05-20] MEDS ORDERED: INSULIN REGULAR 100 UNIT/ML IV STA (01:35)
[2021-05-20 01:53] LABS: ABG Base Excess -5.5 MMOL/L (-2.5-2.5); ABG HCO3 19.9 MMOL/L (20-26); ABG Oxygen Saturation 94.3 % (95-100); ABG PCO2 39.1 MM HG (35-48); ABG PH 7.321 (7.35-7.45); ABG PO2 75.1 MM HG (80-95); ABG TCO2 18.1 MMOL/L (23-27); Allen Test Positive; Pt O2 Delivery Device Room Air
[2021-05-20] MEDS ORDERED: GLUCAGON 1 MG VIAL IM PRN (02:00)
[2021-05-20] MEDS ORDERED: ACETAMINOPHEN 325 MG TABLET PO PRN (02:00)
[2021-05-20] MEDS ORDERED: ONDANSETRON 4 MG/2 ML VIAL IV PRN (02:00)
[2021-05-20 02:11] LABS: PT Patient Result 10.7 SECS (10.5-12.0)
[2021-05-20] MEDS: SODIUM CHLORIDE 0.45% 1,000 ML IV SCH ×3 (02:42→18:43)
[2021-05-20] MEDS: INSULIN REGULAR 100 UNIT/ML SUBCUT SCH ×3 (06:27→23:55)
[2021-05-20] MEDS: PANTOPRAZOLE 40 MG TABLET PO SCH (09:00)
[2021-05-20 10:52] LABS: Basophils # 0.1 10*3/uL (0.0-0.2); Basophils % 0.6 % (0.0-0.8); Eosinophils # 0.1 10*3/uL (0.0-0.87); Eosinophils % 0.6 % (0.00-10.9); Hematocrit 36.1 VOL% (35.7-47.0); Immature Granulocytes % 0.5 %; Immature Granulocytes Absolute 0.05 #; Lymphocytes # 1.9 10*3/uL (1.4-4.0); Lymphocytes % 18.7 % (21.3-54.2); Mean Corpuscular HGB Conc 33.2 GM/DL (32-36); Mean Corpuscular Volume 89.4 FL (87-102); Mean Platelet Volume 10.1 FL (9.6-12.0); Monocytes % 5.6 % (1.7-12.7); Platelet Count 231 T/CUMM (130-400); Red Blood Count 4.04 MC/CUMM (3.8-5.5); Red Cell Distribution Width 13.6 % (9.3-17.3); White Blood Count 10.4 T/CUMM (4-12)
[2021-05-20 11:14] LABS: Calcium 8.3 MG/DL (8.5-10.1); Potassium 3.4 MMOL/L (3.5-5.1)
[2021-05-20] MEDS: INSULIN GLARGINE 100 UNIT/ML SUBCUT SCH (14:13)
[2021-05-20] MEDS: GABAPENTIN 300 MG CAPSULE PO SCH (14:14)
[2021-05-20] MEDS: LORATADINE 10 MG TABLET PO SCH (18:13)
[2021-05-20] MEDS: INSULIN LISPRO 100 UNIT/ML SUBCUT SCH ×2 (18:17→22:30)
[2021-05-20] MEDS: SERTRALINE 100 MG TABLET PO SCH (21:01)
[2021-05-20] MEDS: TAMSULOSIN 0.4 MG CAPSULE PO SCH (21:01)
[2021-05-20] MEDS: DEXTROSE 10% 250 ML BAG IV PRN (22:19)
[2021-05-21] MEDS: SODIUM CHLORIDE 0.45% 1,000 ML IV SCH ×2 (02:43→13:20)
[2021-05-21] MEDS: INSULIN REGULAR 100 UNIT/ML SUBCUT SCH (05:53)
[2021-05-21 07:46] LABS: Basophils % 0.4 % (0.0-0.8); Eosinophils # 0.1 10*3/uL (0.0-0.87); Eosinophils % 1.4 % (0.00-10.9); Hematocrit 37.7 VOL% (35.7-47.0); Hemoglobin 12.2 GM/DL (12.0-16.0); Immature Granulocytes % 0.6 %; Immature Granulocytes Absolute 0.06 #; Lymphocytes # 0.8 10*3/uL (1.4-4.0); Lymphocytes % 8.7 % (21.3-54.2); Mean Corpuscular HGB Conc 32.4 GM/DL (32-36); Mean Corpuscular Volume 91.1 FL (87-102); Mean Platelet Volume 11.1 FL (9.6-12.0); Monocytes % 5.3 % (1.7-12.7); Neutrophils % 83.6 % (38.7-73.9); Platelet Count 173 T/CUMM (130-400); Red Blood Count 4.14 MC/CUMM (3.8-5.5); Red Cell Distribution Width 13.2 % (9.3-17.3); White Blood Count 9.3 T/CUMM (4-12)
[2021-05-21 08:11] LABS: Band Neutrophils 1 % (0-10); Eosinophils 8 % (0-10); Lymphocytes 8 % (20-55); Segmented Neutrophils 78 % (50-85); Total Cells Counted 100
[2021-05-21 08:12] LABS: Hypochromia 1+; Microcytosis 1+; Platelet Estimate Adequate
[2021-05-21 08:26] LABS: Alanine Aminotransferase < 9 U/L (13-56); Albumin 2.3 G/DL (3.4-5.0); Alkaline Phosphatase 142 U/L (45-117); Aspartate Amino Transferase 19 U/L (0-37); Blood Urea Nitrogen 6 MG/DL (7-18); Calcium 8.4 MG/DL (8.5-10.1); Carbon Dioxide 26 MMOL/L (21-32); Estimated Glom Filtration Rate 77 ML/MIN; Glucose 253 MG/DL (74-106); Osmolality,Calculated 279.8 MOS/KG (273-304); Potassium 3.3 MMOL/L (3.5-5.1); Sodium 137 MMOL/L (136-145); Total Protein 5.6 G/DL (6.4-8.2)
[2021-05-21] MEDS: INSULIN LISPRO 100 UNIT/ML SUBCUT SCH ×4 (10:01→22:08)
[2021-05-21] MEDS: LORATADINE 10 MG TABLET PO SCH (10:02)
[2021-05-21] MEDS: PANTOPRAZOLE 40 MG TABLET PO SCH (10:03)
[2021-05-21] MEDS: INSULIN GLARGINE 100 UNIT/ML SUBCUT SCH (10:03)
[2021-05-21] MEDS: GABAPENTIN 300 MG CAPSULE PO SCH (10:03)
[2021-05-21] MEDS ORDERED: POTASSIUM CHLORIDE RIDER 10 MEQ/100 ML PREMIX IV PRN (10:11)
[2021-05-21] MEDS ORDERED: LIDOCAINE 2% 5 ML VIAL ONE (12:28)
[2021-05-21] MEDS ORDERED: propofoL 200 MG/20 ML VIAL IV ONE (12:28)
[2021-05-21] MEDS: LACTATED RINGERS 1,000 ML IV SCH (12:30)
[2021-05-21] MEDS: VANCOMYCIN INJ 750 MG in SODIUM CHLORIDE 0.9% 250 ML IV SCH (14:45)
[2021-05-21] MEDS: SERTRALINE 100 MG TABLET PO SCH (20:35)
[2021-05-21] MEDS: TAMSULOSIN 0.4 MG CAPSULE PO SCH (20:36)
[2021-05-22] MEDS: INSULIN LISPRO 100 UNIT/ML SUBCUT SCH ×5 (00:47→21:13)
[2021-05-22] MEDS: VANCOMYCIN INJ 750 MG in SODIUM CHLORIDE 0.9% 250 ML IV SCH ×2 (02:47→14:34)
[2021-05-22] MEDS: SODIUM CHLORIDE 0.45% 1,000 ML IV SCH ×2 (06:35)
[2021-05-22 07:06] LABS: Basophils % 0.5 % (0.0-0.8); Eosinophils # 0.3 10*3/uL (0.0-0.87); Eosinophils % 3.4 % (0.00-10.9); Hematocrit 32.4 VOL% (35.7-47.0); Hemoglobin 10.7 GM/DL (12.0-16.0); Immature Granulocytes % 0.4 %; Immature Granulocytes Absolute 0.03 #; Lymphocytes % 12.8 % (21.3-54.2); Mean Platelet Volume 10.7 FL (9.6-12.0); Monocytes % 5.1 % (1.7-12.7); Neutrophils % 77.8 % (38.7-73.9); Platelet Count 168 T/CUMM (130-400); Red Blood Count 3.64 MC/CUMM (3.8-5.5); Red Cell Distribution Width 12.9 % (9.3-17.3); White Blood Count 7.9 T/CUMM (4-12)
[2021-05-22 07:28] LABS: Osmolality,Calculated 283.8 MOS/KG (273-304); Potassium 3.4 MMOL/L (3.5-5.1)
[2021-05-22] MEDS: INSULIN GLARGINE 100 UNIT/ML SUBCUT SCH (09:07)
[2021-05-22] MEDS: LORATADINE 10 MG TABLET PO SCH (09:07)
[2021-05-22] MEDS: PANTOPRAZOLE 40 MG TABLET PO SCH (09:07)
[2021-05-22] MEDS: GABAPENTIN 300 MG CAPSULE PO SCH (09:07)
[2021-05-22] MEDS ORDERED: DEXTROSE 50% 25 GM/50 ML VIAL IV PRN (09:08)
[2021-05-22] MEDS: LACTATED RINGERS 1,000 ML IV SCH (09:33)
[2021-05-22] MEDS: ENOXAPARIN 30 MG/0.3 ML SYRINGE SUBCUT SCH (10:10)
[2021-05-22] MEDS: POTASSIUM CHLORIDE 20 MEQ TABLET PO PRN (14:34)
[2021-05-22] MEDS: SERTRALINE 100 MG TABLET PO SCH (21:13)
[2021-05-22] MEDS: TAMSULOSIN 0.4 MG CAPSULE PO SCH (21:13)
[2021-05-23] MEDS: SODIUM CHLORIDE 0.45% 1,000 ML IV SCH ×3 (00:42→20:37)
[2021-05-23] MEDS: VANCOMYCIN INJ 750 MG in SODIUM CHLORIDE 0.9% 250 ML IV SCH ×2 (02:40→14:00)
[2021-05-23 05:38] LABS: Basophils % 0.4 % (0.0-0.8); Eosinophils # 0.2 10*3/uL (0.0-0.87); Eosinophils % 4.1 % (0.00-10.9); Hematocrit 34.2 VOL% (35.7-47.0); Hemoglobin 11.5 GM/DL (12.0-16.0); Immature Granulocytes % 0.2 %; Immature Granulocytes Absolute 0.01 #; Lymphocytes # 0.9 10*3/uL (1.4-4.0); Lymphocytes % 15.7 % (21.3-54.2); Mean Corpuscular HGB Conc 33.6 GM/DL (32-36); Mean Corpuscular Volume 89.1 FL (87-102); Mean Platelet Volume 10.7 FL (9.6-12.0); Monocytes % 4.3 % (1.7-12.7); Neutrophils % 75.3 % (38.7-73.9); Platelet Count 164 T/CUMM (130-400); Red Blood Count 3.84 MC/CUMM (3.8-5.5); Red Cell Distribution Width 13.1 % (9.3-17.3); White Blood Count 5.6 T/CUMM (4-12)
[2021-05-23 05:57] LABS: Alanine Aminotransferase 9 U/L (13-56); Albumin 1.8 G/DL (3.4-5.0); Alkaline Phosphatase 112 U/L (45-117); Aspartate Amino Transferase 10 U/L (0-37); Bilirubin,Total < 0.39 MG/DL (0.20-1.00); Blood Urea Nitrogen 5 MG/DL (7-18); Calcium 8.1 MG/DL (8.5-10.1); Carbon Dioxide 26 MMOL/L (21-32); Estimated Glom Filtration Rate 87 ML/MIN; Glucose 87 MG/DL (74-106); Osmolality,Calculated 272.5 MOS/KG (273-304); Sodium 139 MMOL/L (136-145); Total Protein 5.1 G/DL (6.4-8.2)
[2021-05-23] MEDS: LORATADINE 10 MG TABLET PO SCH (10:06)
[2021-05-23] MEDS: GABAPENTIN 300 MG CAPSULE PO SCH (10:06)
[2021-05-23] MEDS: POTASSIUM CHLORIDE 20 MEQ TABLET PO PRN (10:06)
[2021-05-23] MEDS: PANTOPRAZOLE 40 MG TABLET PO SCH (10:06)
[2021-05-23] MEDS: INSULIN GLARGINE 100 UNIT/ML SUBCUT SCH (10:07)
[2021-05-23] MEDS: ENOXAPARIN 30 MG/0.3 ML SYRINGE SUBCUT SCH (10:08)
[2021-05-23] MEDS: INSULIN LISPRO 100 UNIT/ML SUBCUT SCH ×4 (10:40→20:37)
[2021-05-23] MEDS: LACTATED RINGERS 1,000 ML IV SCH (10:40)
[2021-05-23] MEDS: SERTRALINE 100 MG TABLET PO SCH (20:33)
[2021-05-23] MEDS: TAMSULOSIN 0.4 MG CAPSULE PO SCH (20:33)
[2021-05-23] MEDS: POTASSIUM CHLORIDE 10 MEQ TABLET PO SCH (20:34)
[2021-05-24] MEDS: SODIUM CHLORIDE 0.45% 1,000 ML IV SCH ×3 (01:03→21:54)
[2021-05-24] MEDS: VANCOMYCIN INJ 750 MG in SODIUM CHLORIDE 0.9% 250 ML IV SCH ×2 (02:12→15:29)
[2021-05-24] MEDS: DEXTROSE 10% 250 ML BAG IV PRN (07:28)
[2021-05-24] MEDS: INSULIN LISPRO 100 UNIT/ML SUBCUT SCH ×4 (08:34→21:54)
[2021-05-24] MEDS: POTASSIUM CHLORIDE 10 MEQ TABLET PO SCH ×2 (10:21→20:56)
[2021-05-24] MEDS: LORATADINE 10 MG TABLET PO SCH (10:21)
[2021-05-24] MEDS: GABAPENTIN 300 MG CAPSULE PO SCH (10:21)
[2021-05-24] MEDS: ENOXAPARIN 30 MG/0.3 ML SYRINGE SUBCUT SCH (10:21)
[2021-05-24] MEDS: PANTOPRAZOLE 40 MG TABLET PO SCH (10:22)
[2021-05-24] MEDS: INSULIN GLARGINE 100 UNIT/ML SUBCUT SCH (10:22)
[2021-05-24] MEDS: NYSTATIN 500,000 UNIT/5 ML UDCUP SWISH/SWAL SCH (20:55)
[2021-05-24] MEDS: SERTRALINE 100 MG TABLET PO SCH (20:56)
[2021-05-24] MEDS: TAMSULOSIN 0.4 MG CAPSULE PO SCH (20:56)
[2021-05-24] MEDS: LACTATED RINGERS 1,000 ML IV SCH (21:54)
[2021-05-25] MEDS: SODIUM CHLORIDE 0.45% 1,000 ML IV SCH ×2 (00:05→19:49)
[2021-05-25] MEDS: VANCOMYCIN INJ 750 MG in SODIUM CHLORIDE 0.9% 250 ML IV SCH ×2 (02:29→17:55)
[2021-05-25 05:40] LABS: Osmolality,Calculated 286.1 MOS/KG (273-304); Potassium 3.8 MMOL/L (3.5-5.1)
[2021-05-25] MEDS: NYSTATIN 500,000 UNIT/5 ML UDCUP SWISH/SWAL SCH ×2 (09:12→21:20)
[2021-05-25] MEDS: GABAPENTIN 300 MG CAPSULE PO SCH (09:12)
[2021-05-25] MEDS: PANTOPRAZOLE 40 MG TABLET PO SCH (09:13)
[2021-05-25] MEDS: INSULIN LISPRO 100 UNIT/ML SUBCUT SCH ×4 (09:13→22:57)
[2021-05-25] MEDS: INSULIN GLARGINE 100 UNIT/ML SUBCUT SCH (09:13)
[2021-05-25] MEDS: POTASSIUM CHLORIDE 10 MEQ TABLET PO SCH ×2 (09:13→21:20)
[2021-05-25] MEDS: LORATADINE 10 MG TABLET PO SCH (09:13)
[2021-05-25] MEDS: ENOXAPARIN 30 MG/0.3 ML SYRINGE SUBCUT SCH (09:14)
[2021-05-25] MEDS: DOXYCYCLINE HYCLATE 100 MG CAPSULE PO SCH ×2 (17:56→21:20)
[2021-05-25] MEDS: LACTATED RINGERS 1,000 ML IV SCH (19:49)
[2021-05-25] MEDS: TAMSULOSIN 0.4 MG CAPSULE PO SCH (21:20)
[2021-05-25] MEDS: SERTRALINE 100 MG TABLET PO SCH (21:21)
[2021-05-26] MEDS: SODIUM CHLORIDE 0.45% 1,000 ML IV SCH ×2 (00:10→09:44)
[2021-05-26] MEDS: VANCOMYCIN INJ 750 MG in SODIUM CHLORIDE 0.9% 250 ML IV SCH (02:20)
[2021-05-26] MEDS: INSULIN LISPRO 100 UNIT/ML SUBCUT SCH ×2 (07:32→11:16)
[2021-05-26] MEDS: LACTATED RINGERS 1,000 ML IV SCH (09:34)
[2021-05-26] MEDS: LORATADINE 10 MG TABLET PO SCH (09:37)
[2021-05-26] MEDS: POTASSIUM CHLORIDE 10 MEQ TABLET PO SCH (09:37)
[2021-05-26] MEDS: DOXYCYCLINE HYCLATE 100 MG CAPSULE PO SCH (09:38)
[2021-05-26] MEDS: GABAPENTIN 300 MG CAPSULE PO SCH (09:39)
[2021-05-26] MEDS: INSULIN GLARGINE 100 UNIT/ML SUBCUT SCH (09:39)
[2021-05-26] MEDS: PANTOPRAZOLE 40 MG TABLET PO SCH (09:40)
[2021-05-26] MEDS: NYSTATIN 500,000 UNIT/5 ML UDCUP SWISH/SWAL SCH (09:41)
[2021-05-26] MEDS: ENOXAPARIN 30 MG/0.3 ML SYRINGE SUBCUT SCH (09:42)
[2021-05-26 11:56] VITALS: BP 159/55
== END 2021-05-26 12:07 | DRG 391 ==
LOC: EDBD → EDUNIT# → N.EDINP 17:51 → N.ED 17:51 → SUATTDRO 05-20 02:04 → N.3E 05-20 17:19
PROVIDERS: ADMIT Internal Medicine; ATTEND Internal Medicine

== ENCOUNTER 2021-10-10 04:45 | Inpatient (IN) ==
[2021-10-10] MEDS ORDERED: PANTOPRAZOLE 40 MG VIAL IV STA (05:03)
[2021-10-10] MEDS ORDERED: ONDANSETRON 4 MG/2 ML VIAL IV STA (05:03)
[2021-10-10] MEDS ORDERED: SODIUM CHLORIDE 0.9% 1,000 ML IV STA (05:03)
[2021-10-10 06:03] LABS: Basophils % 0.5 % (0.0-0.8); Eosinophils % 0.1 % (0.00-10.9); Hematocrit 45.2 VOL% (35.7-47.0); Immature Granulocytes % 0.4 %; Immature Granulocytes Absolute 0.03 #; Lymphocytes # 0.8 10*3/uL (1.4-4.0); Mean Corpuscular HGB Conc 33.2 GM/DL (32-36); Mean Corpuscular Volume 94.4 FL (87-102); Mean Platelet Volume 10.8 FL (9.6-12.0); Monocytes # 0.4 10*3/uL (0.11-0.8); Monocytes % 4.7 % (1.7-12.7); Neutrophils % 83.3 % (38.7-73.9); Platelet Count 261 T/CUMM (130-400); Red Blood Count 4.79 MC/CUMM (3.8-5.5); Red Cell Distribution Width 14.2 % (9.3-17.3); White Blood Count 7.5 T/CUMM (4-12)
[2021-10-10 06:05] LABS: RBC,Urine 1 /HPF (0-4); Squamous Epithelial Cell,Urine Occasional /HPF (0-10)
[2021-10-10 06:06] LABS: Urine Appearance Slightly Cloudy (Clear); Urine Color Yellow (Yellow)
[2021-10-10 06:07] LABS: Bilirubin,Urine Small mg/dL (Negative); Blood, Urine Small mg/dL (Negative); Glucose,Urine (UA) 500 mg/dL (Negative); Ketones,Urine >160 mg/dL (Negative); Nitrite,Urine Negative (Negative); Protein,Urine Negative (Negative); Urine Specific Gravity 1.015 (1.001-1.035); Urine Urobilinogen 0.2 eU/dL (<2.0)
[2021-10-10 06:18] LABS: Alanine Aminotransferase 48 U/L (13-56); Albumin 3.4 G/DL (3.4-5.0); Alkaline Phosphatase 139 U/L (45-117); Amylase 208 U/L (25-115); Aspartate Amino Transferase 23 U/L (0-37); Blood Urea Nitrogen 21 MG/DL (7-18); Calcium 9.8 MG/DL (8.5-10.1); Carbon Dioxide 20 MMOL/L (21-32); Chloride 104 MMOL/L (98-107); Glucose 366 MG/DL (74-106); Osmolality,Calculated 300.1 MOS/KG (273-304); Potassium 4.2 MMOL/L (3.5-5.1); Sodium 142 MMOL/L (136-145); Total Protein 6.7 G/DL (6.4-8.2)
[2021-10-10] MEDS ORDERED: SODIUM CHLORIDE 0.9% 1,450 ML IV ONE (06:33)
[2021-10-10] MEDS ORDERED: LEVOFLOXACIN INJ 500 MG/100 ML PREMIX IV SCH (07:00)
[2021-10-10] MEDS ORDERED: GLUCAGON 1 MG VIAL IM PRN (10:39)
[2021-10-10] MEDS ORDERED: ACETAMINOPHEN 325 MG TABLET PO PRN (10:39)
[2021-10-10] MEDS ORDERED: DEXTROSE 10% 250 ML BAG IV PRN ×3 (10:39→15:30)
[2021-10-10] MEDS: SODIUM CHLORIDE 0.9% 1,000 ML IV SCH ×3 (12:00→21:36)
[2021-10-10] MEDS ORDERED: INSULIN REGULAR 100 UNIT/ML SUBCUT STA (13:47)
[2021-10-10] MEDS ORDERED: INSULIN LISPRO 100 UNIT/ML SUBCUT SCH (14:00)
[2021-10-10] MEDS ORDERED: ONDANSETRON ODT 4 MG TABLET PO PRN (15:54)
[2021-10-10] MEDS: ONDANSETRON 4 MG/2 ML VIAL IV PRN (15:55)
[2021-10-10] MEDS: INSULIN LISPRO 100 UNIT/ML SUBCUT SCH ×3 (17:00→21:36)
[2021-10-10] MEDS: POTASSIUM CHLORIDE 10 MEQ TABLET PO SCH (21:34)
[2021-10-10] MEDS: ATORVASTATIN 40 MG TABLET PO SCH (21:36)
[2021-10-10] MEDS: SERTRALINE 100 MG TABLET PO SCH (21:36)
[2021-10-10] MEDS: DOCUSATE SODIUM 100 MG CAPSULE PO SCH (21:45)
[2021-10-10] MEDS: TAMSULOSIN 0.4 MG CAPSULE PO SCH (21:45)
[2021-10-11] MEDS: INSULIN LISPRO 100 UNIT/ML SUBCUT SCH ×7 (02:55→21:35)
[2021-10-11] MEDS: SODIUM CHLORIDE 0.9% 1,000 ML IV SCH ×3 (02:55→16:46)
[2021-10-11 07:02] LABS: Basophils # 0.1 10*3/uL (0.0-0.2); Basophils % 0.9 % (0.0-0.8); Eosinophils % 0.4 % (0.00-10.9); Hematocrit 37.3 VOL% (35.7-47.0); Immature Granulocytes % 0.7 %; Immature Granulocytes Absolute 0.04 #; Lymphocytes # 1.4 10*3/uL (1.4-4.0); Lymphocytes % 24.7 % (21.3-54.2); Mean Corpuscular HGB Conc 31.6 GM/DL (32-36); Mean Corpuscular Volume 97.1 FL (87-102); Mean Platelet Volume 10.8 FL (9.6-12.0); Monocytes # 0.3 10*3/uL (0.11-0.8); Monocytes % 5.1 % (1.7-12.7); Neutrophils % 68.2 % (38.7-73.9); Red Blood Count 3.84 MC/CUMM (3.8-5.5); Red Cell Distribution Width 14.5 % (9.3-17.3); White Blood Count 5.7 T/CUMM (4-12)
[2021-10-11 07:04] LABS: Hemoglobin 11.8 GM/DL (12.0-16.0); Platelet Count 207 T/CUMM (130-400)
[2021-10-11 07:07] LABS: Calcium 8.6 MG/DL (8.5-10.1); Osmolality,Calculated 294.4 MOS/KG (273-304); Potassium 4.1 MMOL/L (3.5-5.1)
[2021-10-11] MEDS: GABAPENTIN 300 MG CAPSULE PO SCH (09:46)
[2021-10-11] MEDS: PANTOPRAZOLE 40 MG TABLET PO SCH (09:46)
[2021-10-11] MEDS: DOCUSATE SODIUM 100 MG CAPSULE PO SCH ×2 (09:46→21:35)
[2021-10-11] MEDS: POTASSIUM CHLORIDE 10 MEQ TABLET PO SCH ×2 (09:48→21:35)
[2021-10-11] MEDS: INSULIN GLARGINE 100 UNIT/ML SUBCUT SCH (11:11)
[2021-10-11] MEDS: SERTRALINE 100 MG TABLET PO SCH (21:35)
[2021-10-11] MEDS: TAMSULOSIN 0.4 MG CAPSULE PO SCH (21:35)
[2021-10-11] MEDS: ATORVASTATIN 40 MG TABLET PO SCH (21:35)
[2021-10-12] MEDS: SODIUM CHLORIDE 0.9% 1,000 ML IV SCH ×3 (01:21→16:52)
[2021-10-12] MEDS: INSULIN LISPRO 100 UNIT/ML SUBCUT SCH ×6 (02:15→22:00)
[2021-10-12 06:27] LABS: Basophils % 0.9 % (0.0-0.8); Eosinophils # 0.3 10*3/uL (0.0-0.87); Eosinophils % 5.7 % (0.00-10.9); Hemoglobin 11.2 GM/DL (12.0-16.0); Immature Granulocytes % 0.2 %; Immature Granulocytes Absolute 0.01 #; Lymphocytes # 2.1 10*3/uL (1.4-4.0); Lymphocytes % 46.9 % (21.3-54.2); Mean Corpuscular HGB Conc 32.9 GM/DL (32-36); Mean Corpuscular Volume 93.4 FL (87-102); Mean Platelet Volume 10.3 FL (9.6-12.0); Monocytes # 0.2 10*3/uL (0.11-0.8); Monocytes % 5.1 % (1.7-12.7); Neutrophils % 41.2 % (38.7-73.9); Platelet Count 166 T/CUMM (130-400); Red Blood Count 3.64 MC/CUMM (3.8-5.5); Red Cell Distribution Width 14.1 % (9.3-17.3); White Blood Count 4.5 T/CUMM (4-12)
[2021-10-12 06:47] LABS: Albumin 2.2 G/DL (3.4-5.0); Bilirubin,Total 0.5 MG/DL (0.20-1.00); Calcium 8.1 MG/DL (8.5-10.1); Prealbumin 13.9 MG/DL (20-40); Total Protein 4.4 G/DL (6.4-8.2)
[2021-10-12] MEDS: ONDANSETRON 4 MG/2 ML VIAL IV PRN (08:46)
[2021-10-12] MEDS: PANTOPRAZOLE 40 MG TABLET PO SCH (09:52)
[2021-10-12] MEDS: GABAPENTIN 300 MG CAPSULE PO SCH (09:52)
[2021-10-12] MEDS: DOCUSATE SODIUM 100 MG CAPSULE PO SCH ×2 (09:52→20:38)
[2021-10-12] MEDS: INSULIN GLARGINE 100 UNIT/ML SUBCUT SCH (09:53)
[2021-10-12] MEDS: POTASSIUM CHLORIDE 10 MEQ TABLET PO SCH ×2 (09:53→20:38)
[2021-10-12] MEDS ORDERED: MAGNESIUM GLUCONATE 500 MG TABLET PO SCH (12:00)
[2021-10-12] MEDS: POTASSIUM CHLORIDE RIDER 10 MEQ/100 ML PREMIX IV SCH ×3 (12:36→16:10)
[2021-10-12] MEDS: MAGNESIUM OXIDE 400 MG TABLET PO SCH ×2 (16:10→20:38)
[2021-10-12] MEDS: ATORVASTATIN 40 MG TABLET PO SCH (20:38)
[2021-10-12] MEDS: SERTRALINE 100 MG TABLET PO SCH (20:38)
[2021-10-12] MEDS: TAMSULOSIN 0.4 MG CAPSULE PO SCH (20:38)
[2021-10-13] MEDS: INSULIN LISPRO 100 UNIT/ML SUBCUT SCH ×5 (05:22→16:58)
[2021-10-13] MEDS: GABAPENTIN 300 MG CAPSULE PO SCH (09:43)
[2021-10-13] MEDS: MAGNESIUM OXIDE 400 MG TABLET PO SCH ×2 (09:43→21:32)
[2021-10-13] MEDS: DOCUSATE SODIUM 100 MG CAPSULE PO SCH ×2 (09:43→21:33)
[2021-10-13] MEDS: PANTOPRAZOLE 40 MG TABLET PO SCH (09:43)
[2021-10-13] MEDS: INSULIN GLARGINE 100 UNIT/ML SUBCUT SCH (09:44)
[2021-10-13] MEDS: POTASSIUM CHLORIDE 10 MEQ TABLET PO SCH ×2 (09:46→21:32)
[2021-10-13] MEDS: LINEZOLID 600 MG TABLET PO SCH ×2 (10:17→21:32)
[2021-10-13] MEDS: SODIUM CHLORIDE 0.9% 1,000 ML IV SCH (13:07)
[2021-10-13] MEDS: ATORVASTATIN 40 MG TABLET PO SCH (21:32)
[2021-10-13] MEDS: TAMSULOSIN 0.4 MG CAPSULE PO SCH (21:32)
[2021-10-14 06:39] LABS: Calcium 8.1 MG/DL (8.5-10.1); Osmolality,Calculated 281.8 MOS/KG (273-304); Potassium 3.2 MMOL/L (3.5-5.1)
[2021-10-14] MEDS: PANTOPRAZOLE 40 MG TABLET PO SCH (09:38)
[2021-10-14] MEDS: INSULIN LISPRO 100 UNIT/ML SUBCUT SCH ×3 (09:38→17:31)
[2021-10-14] MEDS: GABAPENTIN 300 MG CAPSULE PO SCH (09:38)
[2021-10-14] MEDS: DOCUSATE SODIUM 100 MG CAPSULE PO SCH ×2 (09:38→21:03)
[2021-10-14] MEDS: LINEZOLID 600 MG TABLET PO SCH ×2 (09:38→21:04)
[2021-10-14] MEDS: POTASSIUM CHLORIDE 10 MEQ TABLET PO SCH ×2 (09:38→21:45)
[2021-10-14] MEDS: MAGNESIUM OXIDE 400 MG TABLET PO SCH ×2 (09:38→21:03)
[2021-10-14] MEDS: INSULIN GLARGINE 100 UNIT/ML SUBCUT SCH (09:39)
[2021-10-14] MEDS: SODIUM CHLORIDE 0.9% 1,000 ML IV SCH ×2 (09:44→16:56)
[2021-10-14] MEDS: TAMSULOSIN 0.4 MG CAPSULE PO SCH (21:03)
[2021-10-14] MEDS: ATORVASTATIN 40 MG TABLET PO SCH (21:04)
[2021-10-15] MEDS: SODIUM CHLORIDE 0.9% 1,000 ML IV SCH (05:01)
[2021-10-15 05:26] LABS: Osmolality,Calculated 280.7 MOS/KG (273-304); Potassium 5.4 MMOL/L (3.5-5.1)
[2021-10-15 08:07] VITALS: BP 137/61
[2021-10-15] MEDS: LINEZOLID 600 MG TABLET PO SCH ×2 (09:31→09:39)
[2021-10-15] MEDS: GABAPENTIN 300 MG CAPSULE PO SCH (09:31)
[2021-10-15] MEDS: PANTOPRAZOLE 40 MG TABLET PO SCH (09:31)
[2021-10-15] MEDS: MAGNESIUM OXIDE 400 MG TABLET PO SCH (09:31)
[2021-10-15] MEDS: INSULIN LISPRO 100 UNIT/ML SUBCUT SCH ×2 (09:33→12:51)
[2021-10-15] MEDS: INSULIN GLARGINE 100 UNIT/ML SUBCUT SCH (09:34)
[2021-10-15] MEDS: DOCUSATE SODIUM 100 MG CAPSULE PO SCH (09:34)
== END 2021-10-15 13:45 | DRG 689 ==
LOC: EDUNIT# → N.EDINP 04:45 → N.ED 04:45 → N.3E 15:24
PROVIDERS: ADMIT Family Medicine; ATTEND Internal Medicine

== ENCOUNTER 2021-12-29 11:22 | Inpatient (IN) ==
[2021-12-29] MEDS ORDERED: SODIUM CHLORIDE 0.9% 1,000 ML IV STA (11:46)
[2021-12-29 11:52] LABS: Basophils % 0.3 % (0.0-0.8); Hematocrit 40.3 VOL% (35.7-47.0); Hemoglobin 12.8 GM/DL (12.0-16.0); Immature Granulocytes % 0.9 %; Immature Granulocytes Absolute 0.11 #; Lymphocytes # 0.9 10*3/uL (1.4-4.0); Lymphocytes % 7.7 % (21.3-54.2); Mean Corpuscular HGB Conc 31.8 GM/DL (32-36); Mean Platelet Volume 10.1 FL (9.6-12.0); Monocytes # 0.6 10*3/uL (0.11-0.8); Monocytes % 4.9 % (1.7-12.7); Neutrophils % 86.2 % (38.7-73.9); Platelet Count 239 T/CUMM (130-400); Red Blood Count 4.07 MC/CUMM (3.8-5.5); Red Cell Distribution Width 13.6 % (9.3-17.3)
[2021-12-29 12:02] LABS: Alanine Aminotransferase 86 U/L (13-56); Albumin 3.5 G/DL (3.4-5.0); Alkaline Phosphatase 139 U/L (45-117); Amylase 121 U/L (25-115); Aspartate Amino Transferase 42 U/L (0-37); Bilirubin,Direct < 0.100 MG/DL (0.0-0.20); Bilirubin,Indirect 0.4 MG/DL (0.0-1.0); Blood Urea Nitrogen 27 MG/DL (7-18); Calcium 8.6 MG/DL (8.5-10.1); Carbon Dioxide 17 MMOL/L (21-32); Chloride 109 MMOL/L (98-107); Glucose 456 MG/DL (74-106); Osmolality,Calculated 310.8 MOS/KG (273-304); Potassium 4.3 MMOL/L (3.5-5.1); Sodium 144 MMOL/L (136-145); Total Protein 6.7 G/DL (6.4-8.2)
[2021-12-29 12:06] LABS: INR 0.9; PT Patient Result 9.8 SECS (10.1-12.1); Partial Thromboplastin Time 20.9 SECS (23.7-32.9)
[2021-12-29] MEDS ORDERED: INSULIN REGULAR 100 UNIT/ML IV STA (12:19)
[2021-12-29 12:23] LABS: Arterial Base Excess iSTAT -11 MMOL/L (-2.5-2.5); Arterial Bicarbonate iSTAT 15.9 MMOL/L (20-26); Arterial O2 Saturation iSTAT 58 % (95-100); Arterial PCO2 iSTAT 40 MM HG (35-48); Arterial PO2 iSTAT 36 MM HG (80-95); Arterial Total CO2 iSTAT 17 MMO/L (23-27); Arterial pH iSTAT 7.211 (7.35-7.45)
[2021-12-29 12:23] LABS: Arterial Base Excess iSTAT -13 MMOL/L (-2.5-2.5); Arterial Bicarbonate iSTAT 14.2 MMOL/L (20-26); Arterial O2 Saturation iSTAT 95 % (95-100); Arterial PCO2 iSTAT 35 MM HG (35-48); Arterial PO2 iSTAT 89 MM HG (80-95); Arterial Total CO2 iSTAT 15 MMO/L (23-27); Arterial pH iSTAT 7.216 (7.35-7.45)
[2021-12-29] MEDS ORDERED: ONDANSETRON 4 MG/2 ML VIAL IV PRN (12:58)
[2021-12-29] MEDS ORDERED: GLUCAGON 1 MG VIAL IM PRN (12:58)
[2021-12-29] MEDS ORDERED: ALUMINUM/MAGNES/SIMETH MAX STR 30 ML UDCUP PO PRN (12:58)
[2021-12-29] MEDS ORDERED: ALBUTEROL 2.5 MG/3 ML NEB RESP TX PRN (12:58)
[2021-12-29] MEDS ORDERED: LACTATED RINGERS 1,000 ML IV ONE (13:03)
[2021-12-29] MEDS: PANTOPRAZOLE 40 MG VIAL IV SCH (13:20)
[2021-12-29] MEDS: INSULIN GLARGINE 100 UNIT/ML SUBCUT SCH (13:34)
[2021-12-29] MEDS ORDERED: INSULIN REGULAR 100 UNIT/ML SUBCUT SCH (14:00)
[2021-12-29 14:09] LABS: Calcium 7.9 MG/DL (8.5-10.1); Osmolality,Calculated 300.7 MOS/KG (273-304); Potassium 4.1 MMOL/L (3.5-5.1)
[2021-12-29] MEDS: LACTATED RINGERS 1,000 ML IV SCH ×3 (14:35→21:41)
[2021-12-29] MEDS: POTASSIUM CHLORIDE RIDER 10 MEQ/100 ML PREMIX IV SCH ×2 (15:13→16:15)
[2021-12-29] MEDS: INSULIN REGULAR 100 UNIT/ML SUBCUT SCH ×2 (16:00→19:53)
[2021-12-29 16:38] LABS: Calcium 8.3 MG/DL (8.5-10.1); Osmolality,Calculated 294.8 MOS/KG (273-304); Potassium 4.2 MMOL/L (3.5-5.1)
[2021-12-29] MEDS: DEXTROSE 50% 25 GM/50 ML SYRINGE IV PRN (19:32)
[2021-12-29 19:34] LABS: Calcium 8.4 MG/DL (8.5-10.1); Osmolality,Calculated 286.7 MOS/KG (273-304)
[2021-12-29] MEDS: ENOXAPARIN 30 MG/0.3 ML SYRINGE SUBCUT SCH (21:41)
[2021-12-30] MEDS: DEXTROSE 50% 25 GM/50 ML SYRINGE IV PRN (00:09)
[2021-12-30] MEDS: INSULIN REGULAR 100 UNIT/ML SUBCUT SCH ×6 (00:20→19:47)
[2021-12-30 02:28] LABS: Calcium 8.4 MG/DL (8.5-10.1); Osmolality,Calculated 285.3 MOS/KG (273-304); Potassium 4.1 MMOL/L (3.5-5.1)
[2021-12-30] MEDS: LACTATED RINGERS 1,000 ML IV SCH ×2 (04:34→15:23)
[2021-12-30] MEDS ORDERED: ONDANSETRON 4 MG TABLET PO PRN (07:08)
[2021-12-30 07:23] LABS: Calcium 8.4 MG/DL (8.5-10.1); Potassium 4.1 MMOL/L (3.5-5.1)
[2021-12-30] MEDS: INSULIN GLARGINE 100 UNIT/ML SUBCUT SCH (08:50)
[2021-12-30] MEDS: CYANOCOBALAMIN 500 MCG TABLET PO SCH (08:51)
[2021-12-30 12:33] LABS: Calcium 8.6 MG/DL (8.5-10.1); Osmolality,Calculated 281.1 MOS/KG (273-304)
[2021-12-30] MEDS: PANTOPRAZOLE 40 MG VIAL IV SCH (13:48)
[2021-12-30] MEDS: SERTRALINE 100 MG TABLET PO SCH (20:44)
[2021-12-30] MEDS: ATORVASTATIN 40 MG TABLET PO SCH (20:44)
[2021-12-30] MEDS: TAMSULOSIN 0.4 MG CAPSULE PO SCH (20:44)
[2021-12-30] MEDS: ENOXAPARIN 30 MG/0.3 ML SYRINGE SUBCUT SCH (20:45)
[2021-12-31] MEDS: INSULIN REGULAR 100 UNIT/ML SUBCUT SCH ×3 (00:08→07:09)
[2021-12-31 06:13] LABS: Calcium 8.7 MG/DL (8.5-10.1); Potassium 3.4 MMOL/L (3.5-5.1)
[2021-12-31] MEDS: LACTATED RINGERS 1,000 ML IV SCH ×3 (07:09→11:25)
[2021-12-31] MEDS: CYANOCOBALAMIN 500 MCG TABLET PO SCH (08:41)
[2021-12-31] MEDS: INSULIN GLARGINE 100 UNIT/ML SUBCUT SCH (08:41)
[2021-12-31] MEDS: POTASSIUM BICARB EFFERVESCENT 20 MEQ TAB.EFF PER TUBE PRN ×3 (09:35→16:23)
[2021-12-31 10:07] LABS: Hepatitis B Core IgM Quant 0.14 Index; Hepatitis B Surface Ag Quant < 0.10 Index; Hepatitis B Surface Ag Result Non-Reactive (NonReactive); Hepatitis C Virus Ab Quant < 0.02 Index; Hepatitis C Virus Ab Result Non-Reactive (NonReactive)
[2021-12-31] MEDS ORDERED: DEXTROSE 50% 25 GM/50 ML SYRINGE IV PRN (10:48)
[2021-12-31 12:28] LABS: Bacteria,Urine Occasional /HPF (Few); RBC,Urine <1 /HPF (0-4); Squamous Epithelial Cell,Urine Occasional /HPF (0-10)
[2021-12-31 12:30] LABS: Bilirubin,Urine Negative (Negative); Blood, Urine Negative (Negative); Glucose,Urine (UA) 500 mg/dL (Negative); Ketones,Urine Negative (Negative); Nitrite,Urine Negative (Negative); Protein,Urine Negative (Negative); Urine Appearance Clear (Clear); Urine Color Light Yellow (Yellow); Urine Specific Gravity 1.015 (1.001-1.035); Urine Urobilinogen 0.2 eU/dL (<2.0); Urine pH 7.5 (4.5-8.0)
[2021-12-31] MEDS ORDERED: INSULIN LISPRO 100 UNIT/ML SUBCUT ONE (12:34)
[2021-12-31] MEDS: INSULIN LISPRO 100 UNIT/ML SUBCUT SCH ×4 (12:34→16:23)
[2021-12-31] MEDS: PANTOPRAZOLE 40 MG VIAL IV SCH (13:58)
[2021-12-31] MEDS: ATORVASTATIN 40 MG TABLET PO SCH (20:46)
[2021-12-31] MEDS: TAMSULOSIN 0.4 MG CAPSULE PO SCH (20:46)
[2021-12-31] MEDS: ENOXAPARIN 30 MG/0.3 ML SYRINGE SUBCUT SCH (20:47)
[2021-12-31] MEDS: SERTRALINE 100 MG TABLET PO SCH (20:47)
[2022-01-01] MEDS: LACTATED RINGERS 1,000 ML IV SCH ×2 (03:46→17:05)
[2022-01-01 06:28] LABS: Basophils % 0.5 % (0.0-0.8); Eosinophils # 0.2 10*3/uL (0.0-0.87); Hematocrit 38.2 VOL% (35.7-47.0); Hemoglobin 12.7 GM/DL (12.0-16.0); Immature Granulocytes % 0.2 %; Immature Granulocytes Absolute 0.01 #; Lymphocytes # 1.9 10*3/uL (1.4-4.0); Lymphocytes % 32.7 % (21.3-54.2); Mean Corpuscular HGB Conc 33.2 GM/DL (32-36); Mean Platelet Volume 10.4 FL (9.6-12.0); Monocytes # 0.4 10*3/uL (0.11-0.8); Monocytes % 6.4 % (1.7-12.7); Neutrophils % 56.2 % (38.7-73.9); Platelet Count 162 T/CUMM (130-400); Red Blood Count 4.02 MC/CUMM (3.8-5.5); Red Cell Distribution Width 13.3 % (9.3-17.3); White Blood Count 5.8 T/CUMM (4-12)
[2022-01-01 06:58] LABS: Osmolality,Calculated 283.3 MOS/KG (273-304); Potassium 4.1 MMOL/L (3.5-5.1)
[2022-01-01] MEDS: INSULIN LISPRO 100 UNIT/ML SUBCUT SCH ×6 (07:30→17:06)
[2022-01-01] MEDS ORDERED: DIAZEPAM 5 MG TABLET PO ONE (08:00)
[2022-01-01] MEDS ORDERED: diphenhydrAMINE CAP 25 MG CAPSULE PO ONE (08:00)
[2022-01-01] MEDS: CYANOCOBALAMIN 500 MCG TABLET PO SCH (08:10)
[2022-01-01 08:17] LABS: Albumin 2.8 G/DL (3.4-5.0); Bilirubin,Total 0.6 MG/DL (0.20-1.00); Calcium 9.1 MG/DL (8.5-10.1); Osmolality,Calculated 283.3 MOS/KG (273-304); Potassium 4.1 MMOL/L (3.5-5.1); Total Protein 5.5 G/DL (6.4-8.2)
[2022-01-01] MEDS ORDERED: VANCOMYCIN 500 MG VIAL ONE (08:30)
[2022-01-01] MEDS ORDERED: VANCOMYCIN 1,000 MG VIAL ONE (08:30)
[2022-01-01] MEDS ORDERED: TISSUE ADHESIVE 1 EACH APPLICATOR TOP ONE (08:30)
[2022-01-01] MEDS ORDERED: fentaNYL 100 MCG/2 ML VIAL ONE (08:46)
[2022-01-01] MEDS ORDERED: MIDAZOLAM 2 MG/2 ML VIAL ONE (08:46)
[2022-01-01] MEDS ORDERED: VANCOMYCIN 500 MG VIAL IRRIG ONE (09:00)
[2022-01-01] MEDS ORDERED: VANCOMYCIN INJ 1,000 MG in SODIUM CHLORIDE 0.9% 250 ML IV ONE (09:00)
[2022-01-01] MEDS ORDERED: GLUCAGON 1 MG VIAL IM PRN (11:06)
[2022-01-01] MEDS ORDERED: DEXTROSE 50% 25 GM/50 ML VIAL IV PRN (11:06)
[2022-01-01] MEDS: INSULIN GLARGINE 100 UNIT/ML SUBCUT SCH (13:03)
[2022-01-01] MEDS: PANTOPRAZOLE 40 MG VIAL IV SCH (13:49)
[2022-01-01] MEDS: TAMSULOSIN 0.4 MG CAPSULE PO SCH (20:51)
[2022-01-01] MEDS: SERTRALINE 100 MG TABLET PO SCH (20:51)
[2022-01-01] MEDS: ATORVASTATIN 40 MG TABLET PO SCH (20:51)
[2022-01-02 04:14] LABS: Basophils % 0.3 % (0.0-0.8); Eosinophils # 0.2 10*3/uL (0.0-0.87); Eosinophils % 3.4 % (0.00-10.9); Hematocrit 38.3 VOL% (35.7-47.0); Hemoglobin 12.7 GM/DL (12.0-16.0); Immature Granulocytes % 0.5 %; Immature Granulocytes Absolute 0.03 #; Lymphocytes # 1.4 10*3/uL (1.4-4.0); Lymphocytes % 21.8 % (21.3-54.2); Mean Corpuscular HGB Conc 33.2 GM/DL (32-36); Mean Corpuscular Volume 96.5 FL (87-102); Mean Platelet Volume 10.2 FL (9.6-12.0); Monocytes # 0.4 10*3/uL (0.11-0.8); Monocytes % 6.7 % (1.7-12.7); Neutrophils % 67.3 % (38.7-73.9); Platelet Count 147 T/CUMM (130-400); Red Blood Count 3.97 MC/CUMM (3.8-5.5); Red Cell Distribution Width 13.2 % (9.3-17.3); White Blood Count 6.3 T/CUMM (4-12)
[2022-01-02 04:26] LABS: Calcium 8.7 MG/DL (8.5-10.1); Osmolality,Calculated 278.7 MOS/KG (273-304)
[2022-01-02] MEDS: INSULIN LISPRO 100 UNIT/ML SUBCUT SCH ×6 (08:38→15:59)
[2022-01-02] MEDS: LACTATED RINGERS 1,000 ML IV SCH (08:40)
[2022-01-02] MEDS: CYANOCOBALAMIN 500 MCG TABLET PO SCH (08:41)
[2022-01-02] MEDS: INSULIN GLARGINE 100 UNIT/ML SUBCUT SCH (08:41)
[2022-01-02] MEDS ORDERED: MAGNESIUM SULF RIDER 2 GM/50 ML PREMIX IV ONE (09:51)
[2022-01-02] MEDS: PANTOPRAZOLE 40 MG VIAL IV SCH (13:39)
[2022-01-02] MEDS: SERTRALINE 100 MG TABLET PO SCH (20:06)
[2022-01-02] MEDS: TAMSULOSIN 0.4 MG CAPSULE PO SCH (20:06)
[2022-01-02] MEDS: ATORVASTATIN 40 MG TABLET PO SCH (20:07)
[2022-01-03 03:57] LABS: Basophils % 0.4 % (0.0-0.8); Eosinophils # 0.2 10*3/uL (0.0-0.87); Eosinophils % 3.2 % (0.00-10.9); Hemoglobin 11.5 GM/DL (12.0-16.0); Immature Granulocytes % 0.4 %; Immature Granulocytes Absolute 0.03 #; Lymphocytes # 1.4 10*3/uL (1.4-4.0); Lymphocytes % 20.2 % (21.3-54.2); Mean Corpuscular HGB Conc 32.9 GM/DL (32-36); Mean Corpuscular Volume 95.9 FL (87-102); Mean Platelet Volume 10.4 FL (9.6-12.0); Monocytes # 0.6 10*3/uL (0.11-0.8); Monocytes % 7.7 % (1.7-12.7); Neutrophils % 68.1 % (38.7-73.9); Platelet Count 137 T/CUMM (130-400); Red Blood Count 3.65 MC/CUMM (3.8-5.5); Red Cell Distribution Width 13.1 % (9.3-17.3); White Blood Count 7.1 T/CUMM (4-12)
[2022-01-03 04:14] LABS: Calcium 8.3 MG/DL (8.5-10.1); Osmolality,Calculated 283.7 MOS/KG (273-304)
[2022-01-03] MEDS: LACTATED RINGERS 1,000 ML IV SCH ×3 (05:29→23:03)
[2022-01-03] MEDS: INSULIN LISPRO 100 UNIT/ML SUBCUT SCH ×6 (08:09→17:58)
[2022-01-03] MEDS: INSULIN GLARGINE 100 UNIT/ML SUBCUT SCH (08:10)
[2022-01-03] MEDS: CYANOCOBALAMIN 500 MCG TABLET PO SCH (10:10)
[2022-01-03] MEDS: PANTOPRAZOLE 40 MG VIAL IV SCH (13:10)
[2022-01-03] MEDS: ENOXAPARIN 30 MG/0.3 ML SYRINGE SUBCUT SCH (20:37)
[2022-01-03] MEDS: TAMSULOSIN 0.4 MG CAPSULE PO SCH (20:38)
[2022-01-03] MEDS: SERTRALINE 100 MG TABLET PO SCH (20:38)
[2022-01-03] MEDS: ATORVASTATIN 40 MG TABLET PO SCH (20:38)
[2022-01-04 04:13] LABS: Basophils % 0.3 % (0.0-0.8); Eosinophils # 0.3 10*3/uL (0.0-0.87); Eosinophils % 5.1 % (0.00-10.9); Hemoglobin 11.1 GM/DL (12.0-16.0); Immature Granulocytes % 0.5 %; Immature Granulocytes Absolute 0.03 #; Lymphocytes # 1.5 10*3/uL (1.4-4.0); Lymphocytes % 22.8 % (21.3-54.2); Mean Corpuscular HGB Conc 32.6 GM/DL (32-36); Mean Platelet Volume 10.5 FL (9.6-12.0); Monocytes # 0.5 10*3/uL (0.11-0.8); Neutrophils % 63.3 % (38.7-73.9); Platelet Count 137 T/CUMM (130-400); Red Blood Count 3.54 MC/CUMM (3.8-5.5); Red Cell Distribution Width 12.9 % (9.3-17.3); White Blood Count 6.5 T/CUMM (4-12)
[2022-01-04 04:31] LABS: Calcium 8.3 MG/DL (8.5-10.1); Osmolality,Calculated 283.5 MOS/KG (273-304); Potassium 3.9 MMOL/L (3.5-5.1)
[2022-01-04] MEDS: INSULIN GLARGINE 100 UNIT/ML SUBCUT SCH (09:51)
[2022-01-04] MEDS: INSULIN LISPRO 100 UNIT/ML SUBCUT SCH ×6 (09:51→16:40)
[2022-01-04] MEDS: CYANOCOBALAMIN 500 MCG TABLET PO SCH ×2 (09:51→10:02)
[2022-01-04] MEDS: LOSARTAN 25 MG TABLET PO SCH (12:00)
[2022-01-04] MEDS: PANTOPRAZOLE 40 MG VIAL IV SCH (14:32)
[2022-01-04] MEDS: LACTATED RINGERS 1,000 ML IV SCH ×2 (15:49→16:04)
[2022-01-04] MEDS: SERTRALINE 100 MG TABLET PO SCH (21:05)
[2022-01-04] MEDS: TAMSULOSIN 0.4 MG CAPSULE PO SCH (21:06)
[2022-01-04] MEDS: ATORVASTATIN 40 MG TABLET PO SCH (21:06)
[2022-01-04] MEDS: ENOXAPARIN 30 MG/0.3 ML SYRINGE SUBCUT SCH (21:07)
[2022-01-05 05:32] LABS: Basophils % 0.2 % (0.0-0.8); Eosinophils # 0.3 10*3/uL (0.0-0.87); Eosinophils % 5.2 % (0.00-10.9); Hematocrit 34.1 VOL% (35.7-47.0); Hemoglobin 11.1 GM/DL (12.0-16.0); Immature Granulocytes % 0.2 %; Immature Granulocytes Absolute 0.01 #; Lymphocytes # 1.3 10*3/uL (1.4-4.0); Mean Corpuscular HGB Conc 32.6 GM/DL (32-36); Mean Corpuscular Volume 97.2 FL (87-102); Monocytes # 0.5 10*3/uL (0.11-0.8); Monocytes % 7.9 % (1.7-12.7); Neutrophils % 63.5 % (38.7-73.9); Platelet Count 157 T/CUMM (130-400); Red Blood Count 3.51 MC/CUMM (3.8-5.5); Red Cell Distribution Width 12.8 % (9.3-17.3); White Blood Count 5.8 T/CUMM (4-12)
[2022-01-05 05:47] LABS: Calcium 8.7 MG/DL (8.5-10.1); Osmolality,Calculated 286.7 MOS/KG (273-304); Potassium 4.2 MMOL/L (3.5-5.1)
[2022-01-05] MEDS: INSULIN LISPRO 100 UNIT/ML SUBCUT SCH ×6 (06:39→16:17)
[2022-01-05] MEDS: LACTATED RINGERS 1,000 ML IV SCH ×2 (07:24→09:00)
[2022-01-05] MEDS: LOSARTAN 25 MG TABLET PO SCH (08:40)
[2022-01-05] MEDS: CYANOCOBALAMIN 500 MCG TABLET PO SCH (08:40)
[2022-01-05] MEDS: INSULIN GLARGINE 100 UNIT/ML SUBCUT SCH (08:40)
[2022-01-05] MEDS: PANTOPRAZOLE 40 MG VIAL IV SCH (12:21)
[2022-01-05] MEDS: SERTRALINE 100 MG TABLET PO SCH (20:57)
[2022-01-05] MEDS: ENOXAPARIN 30 MG/0.3 ML SYRINGE SUBCUT SCH (20:57)
[2022-01-05] MEDS: TAMSULOSIN 0.4 MG CAPSULE PO SCH (20:57)
[2022-01-05] MEDS: ATORVASTATIN 40 MG TABLET PO SCH (20:57)
[2022-01-06] MEDS: LACTATED RINGERS 1,000 ML IV SCH ×3 (00:47→23:55)
[2022-01-06 05:51] LABS: Basophils % 0.6 % (0.0-0.8); Eosinophils # 0.3 10*3/uL (0.0-0.87); Eosinophils % 4.9 % (0.00-10.9); Hematocrit 36.4 VOL% (35.7-47.0); Hemoglobin 11.8 GM/DL (12.0-16.0); Immature Granulocytes % 0.4 %; Immature Granulocytes Absolute 0.02 #; Lymphocytes # 1.7 10*3/uL (1.4-4.0); Lymphocytes % 32.7 % (21.3-54.2); Mean Corpuscular HGB Conc 32.4 GM/DL (32-36); Mean Corpuscular Volume 97.8 FL (87-102); Mean Platelet Volume 11.5 FL (9.6-12.0); Monocytes # 0.4 10*3/uL (0.11-0.8); Monocytes % 8.5 % (1.7-12.7); Neutrophils % 52.9 % (38.7-73.9); Platelet Count 171 T/CUMM (130-400); Red Blood Count 3.72 MC/CUMM (3.8-5.5); Red Cell Distribution Width 12.7 % (9.3-17.3); White Blood Count 5.1 T/CUMM (4-12)
[2022-01-06 06:09] LABS: Calcium 8.9 MG/DL (8.5-10.1); Osmolality,Calculated 284.4 MOS/KG (273-304); Potassium 4.1 MMOL/L (3.5-5.1)
[2022-01-06] MEDS: LOSARTAN 25 MG TABLET PO SCH (09:22)
[2022-01-06] MEDS: INSULIN GLARGINE 100 UNIT/ML SUBCUT SCH (09:22)
[2022-01-06] MEDS: CYANOCOBALAMIN 500 MCG TABLET PO SCH (09:22)
[2022-01-06] MEDS: INSULIN LISPRO 100 UNIT/ML SUBCUT SCH ×6 (09:22→17:44)
[2022-01-06] MEDS: ATORVASTATIN 40 MG TABLET PO SCH (21:10)
[2022-01-06] MEDS: SERTRALINE 100 MG TABLET PO SCH (21:11)
[2022-01-06] MEDS: ENOXAPARIN 30 MG/0.3 ML SYRINGE SUBCUT SCH (21:11)
[2022-01-06] MEDS: TAMSULOSIN 0.4 MG CAPSULE PO SCH (21:11)
[2022-01-07] MEDS: LACTATED RINGERS 1,000 ML IV SCH (04:39)
[2022-01-07] MEDS: CYANOCOBALAMIN 500 MCG TABLET PO SCH (08:38)
[2022-01-07] MEDS: LOSARTAN 25 MG TABLET PO SCH (08:39)
[2022-01-07] MEDS: INSULIN LISPRO 100 UNIT/ML SUBCUT SCH ×4 (08:39→11:22)
[2022-01-07] MEDS: INSULIN GLARGINE 100 UNIT/ML SUBCUT SCH (08:39)
[2022-01-07] MEDS ORDERED: PANTOPRAZOLE 40 MG TABLET PO SCH (09:00)
[2022-01-07 13:07] VITALS: BP 122/67
== END 2022-01-07 14:15 | DRG 981 ==
LOC: N.ED 11:22 → SUATTDRO 12:58 → N.EDINP 12:58 → N.ICU 14:34 → N.TELEN 01-03 14:16
PROVIDERS: ADMIT Internal Medicine; ATTEND Internal Medicine
PROC: IRGDHTC (2022-01-02 10:05)